=== PATIENT | female | born 1945 | race Caucasian/White ===

== ENCOUNTER 2017-09-10 11:28 | Day surgery (SDC) | payer MEDICARE ==
[~2017-09-10 11:28] MED LIST: ALBU8HFA PO; AMIT-189 PO; ASCO500C15 PO; ASPI-1009 PO; ATOR10TA87 PO; CARV6.253 PO; COU5T PO; ESCI10TA54 PO; FAMO20TA8 PO; GUAI118S13 PO; LEVO50TA8 PO; NAPR220T67 PO; NITR0.4T SL; OMEP-84 PO; VITA1CAP
[2017-09-10] MEDS ORDERED: LIDOcaine 2% 5ml jelly ONE (12:19)
[2017-09-10] MEDS ORDERED: BENA10TA2 PO (13:03)
== END 2017-09-10 12:55 | disposition home or self-care (01) ==
LOC: WOUND CARE 11:28
PROVIDERS: ATTEND Surgery
DX: T81.89XD Other complications of procedures, not elsewhere classified, subsequent encounter (principal); E11.622 Type 2 diabetes mellitus with other skin ulcer; L98.491 Non-pressure chronic ulcer of skin of other sites limited to breakdown of skin; E11.22 Type 2 diabetes mellitus with diabetic chronic kidney disease; I13.0 Hypertensive heart and chronic kidney disease with heart failure and stage 1 through stage 4 chronic kidney disease, or unspecified chronic kidney disease; I50.30 Unspecified diastolic (congestive) heart failure; N18.4 Chronic kidney disease, stage 4 (severe); J44.9 Chronic obstructive pulmonary disease, unspecified; K21.9 Gastro-esophageal reflux disease without esophagitis; E03.9 Hypothyroidism, unspecified; E66.01 Morbid (severe) obesity due to excess calories; G20 Parkinson's disease; J45.909 Unspecified asthma, uncomplicated; I48.91 Unspecified atrial fibrillation; M19.90 Unspecified osteoarthritis, unspecified site; I25.10 Atherosclerotic heart disease of native coronary artery without angina pectoris; Z90.710 Acquired absence of both cervix and uterus; Z90.49 Acquired absence of other specified parts of digestive tract; Z68.41 Body mass index [BMI] 40.0-44.9, adult; Z79.82 Long term (current) use of aspirin; Z79.84 Long term (current) use of oral hypoglycemic drugs; Z79.899 Other long term (current) drug therapy; Z72.89 Other problems related to lifestyle; Z86.03 Personal history of neoplasm of uncertain behavior; Z86.718 Personal history of other venous thrombosis and embolism; Z86.711 Personal history of pulmonary embolism; Z86.72 Personal history of thrombophlebitis; Z95.1 Presence of aortocoronary bypass graft; Y83.8 Other surgical procedures as the cause of abnormal reaction of the patient, or of later complication, without mention of misadventure at the time of the procedure
CPT/HCPCS: 97597; A6021; A6206

== ENCOUNTER 2017-09-17 11:17 | Outpatient (CLI) | payer MEDICARE ==
[~2017-09-17 11:17] MED LIST changes: +BENA10TA2 PO
== END 2017-09-17 12:24 | disposition home or self-care (01) ==
LOC: WOUND CARE 11:17
PROVIDERS: ATTEND Surgery
DX: E11.622 Type 2 diabetes mellitus with other skin ulcer (principal); L98.491 Non-pressure chronic ulcer of skin of other sites limited to breakdown of skin; I13.0 Hypertensive heart and chronic kidney disease with heart failure and stage 1 through stage 4 chronic kidney disease, or unspecified chronic kidney disease; E11.22 Type 2 diabetes mellitus with diabetic chronic kidney disease; N18.4 Chronic kidney disease, stage 4 (severe); I50.30 Unspecified diastolic (congestive) heart failure; J44.9 Chronic obstructive pulmonary disease, unspecified; I25.10 Atherosclerotic heart disease of native coronary artery without angina pectoris; K21.9 Gastro-esophageal reflux disease without esophagitis; E03.9 Hypothyroidism, unspecified; E66.01 Morbid (severe) obesity due to excess calories; G20 Parkinson's disease; J45.909 Unspecified asthma, uncomplicated; I48.91 Unspecified atrial fibrillation; M19.90 Unspecified osteoarthritis, unspecified site; Z90.710 Acquired absence of both cervix and uterus; Z90.49 Acquired absence of other specified parts of digestive tract; Z68.41 Body mass index [BMI] 40.0-44.9, adult; Z79.82 Long term (current) use of aspirin; Z79.84 Long term (current) use of oral hypoglycemic drugs; Z79.899 Other long term (current) drug therapy; Z72.89 Other problems related to lifestyle; Z86.03 Personal history of neoplasm of uncertain behavior; Z86.718 Personal history of other venous thrombosis and embolism; Z86.711 Personal history of pulmonary embolism; Z86.72 Personal history of thrombophlebitis; Z95.1 Presence of aortocoronary bypass graft; Z79.01 Long term (current) use of anticoagulants
CPT/HCPCS: 99211; A6206; A6222

== ENCOUNTER 2017-09-21 11:25 | Day surgery (SDC) | payer MEDICARE ==
[2017-09-21] MEDS ORDERED: LIDOcaine 2% 5ml jelly ONE (11:42)
[2017-09-21] MEDS ORDERED: nystatin/triamcinolone cream 15gm TP ONE (11:57)
== END 2017-09-21 12:12 | disposition home or self-care (01) ==
LOC: WOUND CARE 11:25
PROVIDERS: ATTEND Surgery
DX: T81.89XD Other complications of procedures, not elsewhere classified, subsequent encounter (principal); L98.491 Non-pressure chronic ulcer of skin of other sites limited to breakdown of skin; I25.10 Atherosclerotic heart disease of native coronary artery without angina pectoris; E11.22 Type 2 diabetes mellitus with diabetic chronic kidney disease; I13.0 Hypertensive heart and chronic kidney disease with heart failure and stage 1 through stage 4 chronic kidney disease, or unspecified chronic kidney disease; I50.30 Unspecified diastolic (congestive) heart failure; N18.4 Chronic kidney disease, stage 4 (severe); J44.9 Chronic obstructive pulmonary disease, unspecified; K21.9 Gastro-esophageal reflux disease without esophagitis; E03.9 Hypothyroidism, unspecified; E66.01 Morbid (severe) obesity due to excess calories; G20 Parkinson's disease; I48.91 Unspecified atrial fibrillation; M19.90 Unspecified osteoarthritis, unspecified site; Z90.710 Acquired absence of both cervix and uterus; Z90.49 Acquired absence of other specified parts of digestive tract; Z68.41 Body mass index [BMI] 40.0-44.9, adult; Z79.01 Long term (current) use of anticoagulants; Z79.82 Long term (current) use of aspirin; Z79.84 Long term (current) use of oral hypoglycemic drugs; Z79.899 Other long term (current) drug therapy; Z72.89 Other problems related to lifestyle; Z86.03 Personal history of neoplasm of uncertain behavior; Z86.718 Personal history of other venous thrombosis and embolism; Z86.711 Personal history of pulmonary embolism; Z95.1 Presence of aortocoronary bypass graft; Y83.8 Other surgical procedures as the cause of abnormal reaction of the patient, or of later complication, without mention of misadventure at the time of the procedure
CPT/HCPCS: 36416; 82948; 97597; A6021; A6206; A6213; A6222

== ENCOUNTER 2017-09-28 11:30 | Day surgery (SDC) | payer MEDICARE ==
[2017-09-28] MEDS ORDERED: LIDOcaine 2% 5ml jelly ONE (11:49)
[2017-09-28] MEDS ORDERED: nystatin/triamcinolone cream 15gm TP ONE (12:17)
== END 2017-09-28 13:05 | disposition home or self-care (01) ==
LOC: WOUND CARE 11:30
PROVIDERS: ATTEND Surgery
DX: T81.89XD Other complications of procedures, not elsewhere classified, subsequent encounter (principal); E11.622 Type 2 diabetes mellitus with other skin ulcer; L98.491 Non-pressure chronic ulcer of skin of other sites limited to breakdown of skin; E11.22 Type 2 diabetes mellitus with diabetic chronic kidney disease; I13.0 Hypertensive heart and chronic kidney disease with heart failure and stage 1 through stage 4 chronic kidney disease, or unspecified chronic kidney disease; I50.30 Unspecified diastolic (congestive) heart failure; N18.4 Chronic kidney disease, stage 4 (severe); K21.9 Gastro-esophageal reflux disease without esophagitis; I25.10 Atherosclerotic heart disease of native coronary artery without angina pectoris; J44.9 Chronic obstructive pulmonary disease, unspecified; E03.9 Hypothyroidism, unspecified; E66.01 Morbid (severe) obesity due to excess calories; G20 Parkinson's disease; I48.91 Unspecified atrial fibrillation; M19.90 Unspecified osteoarthritis, unspecified site; Z90.710 Acquired absence of both cervix and uterus; Z68.41 Body mass index [BMI] 40.0-44.9, adult; Z90.49 Acquired absence of other specified parts of digestive tract; Z79.01 Long term (current) use of anticoagulants; Z79.82 Long term (current) use of aspirin; Z79.84 Long term (current) use of oral hypoglycemic drugs; Z79.899 Other long term (current) drug therapy; Z72.89 Other problems related to lifestyle; Z86.03 Personal history of neoplasm of uncertain behavior; Z86.718 Personal history of other venous thrombosis and embolism; Z86.711 Personal history of pulmonary embolism; Z95.1 Presence of aortocoronary bypass graft; Y83.8 Other surgical procedures as the cause of abnormal reaction of the patient, or of later complication, without mention of misadventure at the time of the procedure
CPT/HCPCS: 17250; A6021; A6206; A6212; 97597

== ENCOUNTER 2017-10-05 11:23 | Day surgery (SDC) | payer MEDICARE ==
[2017-10-05] MEDS ORDERED: LIDOcaine 2% 5ml jelly ONE (11:31)
== END 2017-10-05 12:02 | disposition home or self-care (01) ==
LOC: WOUND CARE 11:23
PROVIDERS: ATTEND Surgery
DX: T81.89XD Other complications of procedures, not elsewhere classified, subsequent encounter (principal); L98.491 Non-pressure chronic ulcer of skin of other sites limited to breakdown of skin; I25.10 Atherosclerotic heart disease of native coronary artery without angina pectoris; E11.22 Type 2 diabetes mellitus with diabetic chronic kidney disease; I13.0 Hypertensive heart and chronic kidney disease with heart failure and stage 1 through stage 4 chronic kidney disease, or unspecified chronic kidney disease; I50.30 Unspecified diastolic (congestive) heart failure; N18.4 Chronic kidney disease, stage 4 (severe); E03.9 Hypothyroidism, unspecified; J44.9 Chronic obstructive pulmonary disease, unspecified; K21.9 Gastro-esophageal reflux disease without esophagitis; E66.01 Morbid (severe) obesity due to excess calories; G20 Parkinson's disease; I48.91 Unspecified atrial fibrillation; M19.90 Unspecified osteoarthritis, unspecified site; Z90.49 Acquired absence of other specified parts of digestive tract; Z90.710 Acquired absence of both cervix and uterus; Z68.41 Body mass index [BMI] 40.0-44.9, adult; Z79.01 Long term (current) use of anticoagulants; Z79.82 Long term (current) use of aspirin; Z79.84 Long term (current) use of oral hypoglycemic drugs; Z79.899 Other long term (current) drug therapy; Z72.89 Other problems related to lifestyle; Z86.03 Personal history of neoplasm of uncertain behavior; Z86.718 Personal history of other venous thrombosis and embolism; Z86.711 Personal history of pulmonary embolism; Z95.1 Presence of aortocoronary bypass graft; Z86.72 Personal history of thrombophlebitis; Y83.8 Other surgical procedures as the cause of abnormal reaction of the patient, or of later complication, without mention of misadventure at the time of the procedure
CPT/HCPCS: 97597; A6021; A6222

== ENCOUNTER 2017-10-12 11:20 | Outpatient (CLI) | payer MEDICARE ==
[~2017-10-12 11:20] MED LIST changes: +gentamicin 0.1% topical ointment 15gm TP ONE
== END 2017-10-12 12:21 | disposition home or self-care (01) ==
LOC: WOUND CARE 11:20 → EDSTATUS 11:30 → WOUND CARE 12:21
PROVIDERS: ATTEND Surgery
DX: T81.89XD Other complications of procedures, not elsewhere classified, subsequent encounter (principal); L98.491 Non-pressure chronic ulcer of skin of other sites limited to breakdown of skin; I25.10 Atherosclerotic heart disease of native coronary artery without angina pectoris; E11.22 Type 2 diabetes mellitus with diabetic chronic kidney disease; I13.0 Hypertensive heart and chronic kidney disease with heart failure and stage 1 through stage 4 chronic kidney disease, or unspecified chronic kidney disease; I50.30 Unspecified diastolic (congestive) heart failure; N18.4 Chronic kidney disease, stage 4 (severe); E03.9 Hypothyroidism, unspecified; J44.9 Chronic obstructive pulmonary disease, unspecified; K21.9 Gastro-esophageal reflux disease without esophagitis; E66.01 Morbid (severe) obesity due to excess calories; G20 Parkinson's disease; I48.91 Unspecified atrial fibrillation; M19.90 Unspecified osteoarthritis, unspecified site; Z90.49 Acquired absence of other specified parts of digestive tract; Z90.710 Acquired absence of both cervix and uterus; Z68.41 Body mass index [BMI] 40.0-44.9, adult; Z79.01 Long term (current) use of anticoagulants; Z79.82 Long term (current) use of aspirin; Z79.84 Long term (current) use of oral hypoglycemic drugs; Z79.899 Other long term (current) drug therapy; Z72.89 Other problems related to lifestyle; Z86.03 Personal history of neoplasm of uncertain behavior; Z86.718 Personal history of other venous thrombosis and embolism; Z86.711 Personal history of pulmonary embolism; Z95.1 Presence of aortocoronary bypass graft; Z86.72 Personal history of thrombophlebitis; Y83.8 Other surgical procedures as the cause of abnormal reaction of the patient, or of later complication, without mention of misadventure at the time of the procedure
CPT/HCPCS: 99215; A6021; A6213

== ENCOUNTER 2017-10-19 11:28 | Day surgery (SDC) | payer MEDICARE ==
[~2017-10-19 11:28] MED LIST changes: -gentamicin 0.1% topical ointment 15gm TP ONE
[2017-10-19] MEDS ORDERED: LIDOcaine 2% 5ml jelly ONE (11:50)
[2017-10-19] MEDS ORDERED: nystatin/triamcinolone cream 15gm TP ONE (12:19)
[2017-10-19] MEDS ORDERED: HYDR28CR14 TP (14:57)
== END 2017-10-19 12:28 | disposition home or self-care (01) ==
LOC: WOUND CARE 11:28
PROVIDERS: ATTEND Surgery
DX: T81.89XD Other complications of procedures, not elsewhere classified, subsequent encounter (principal); E11.622 Type 2 diabetes mellitus with other skin ulcer; L98.491 Non-pressure chronic ulcer of skin of other sites limited to breakdown of skin; I25.10 Atherosclerotic heart disease of native coronary artery without angina pectoris; E11.22 Type 2 diabetes mellitus with diabetic chronic kidney disease; I13.0 Hypertensive heart and chronic kidney disease with heart failure and stage 1 through stage 4 chronic kidney disease, or unspecified chronic kidney disease; I50.30 Unspecified diastolic (congestive) heart failure; N18.4 Chronic kidney disease, stage 4 (severe); J44.9 Chronic obstructive pulmonary disease, unspecified; K21.9 Gastro-esophageal reflux disease without esophagitis; E03.9 Hypothyroidism, unspecified; E66.01 Morbid (severe) obesity due to excess calories; G20 Parkinson's disease; I48.91 Unspecified atrial fibrillation; M19.90 Unspecified osteoarthritis, unspecified site; Z90.710 Acquired absence of both cervix and uterus; Z90.49 Acquired absence of other specified parts of digestive tract; Z68.41 Body mass index [BMI] 40.0-44.9, adult; Z79.01 Long term (current) use of anticoagulants; Z79.82 Long term (current) use of aspirin; Z79.899 Other long term (current) drug therapy; Z72.89 Other problems related to lifestyle; Z86.718 Personal history of other venous thrombosis and embolism; Z86.711 Personal history of pulmonary embolism; Z95.1 Presence of aortocoronary bypass graft; Y83.8 Other surgical procedures as the cause of abnormal reaction of the patient, or of later complication, without mention of misadventure at the time of the procedure
CPT/HCPCS: 17250; A6021; A6206; A6213

== ENCOUNTER 2017-10-26 11:33 | Day surgery (SDC) | payer MEDICARE ==
[~2017-10-26 11:33] MED LIST changes: +HYDR28CR14 TP
[2017-10-26] MEDS ORDERED: LIDOcaine 2% 5ml jelly ONE (11:40)
[2017-10-26] MEDS ORDERED: nystatin/triamcinolone cream 15gm TP ONE (14:10)
== END 2017-10-26 12:15 | disposition home or self-care (01) ==
LOC: WOUND CARE 11:33
PROVIDERS: ATTEND Surgery
DX: T81.89XD Other complications of procedures, not elsewhere classified, subsequent encounter (principal); E11.622 Type 2 diabetes mellitus with other skin ulcer; L98.491 Non-pressure chronic ulcer of skin of other sites limited to breakdown of skin; I25.10 Atherosclerotic heart disease of native coronary artery without angina pectoris; E11.22 Type 2 diabetes mellitus with diabetic chronic kidney disease; I13.0 Hypertensive heart and chronic kidney disease with heart failure and stage 1 through stage 4 chronic kidney disease, or unspecified chronic kidney disease; I50.30 Unspecified diastolic (congestive) heart failure; N18.4 Chronic kidney disease, stage 4 (severe); J44.9 Chronic obstructive pulmonary disease, unspecified; K21.9 Gastro-esophageal reflux disease without esophagitis; E03.9 Hypothyroidism, unspecified; E66.01 Morbid (severe) obesity due to excess calories; G20 Parkinson's disease; I48.91 Unspecified atrial fibrillation; M19.90 Unspecified osteoarthritis, unspecified site; Z90.710 Acquired absence of both cervix and uterus; Z90.49 Acquired absence of other specified parts of digestive tract; Z68.41 Body mass index [BMI] 40.0-44.9, adult; Z79.01 Long term (current) use of anticoagulants; Z79.82 Long term (current) use of aspirin; Z79.899 Other long term (current) drug therapy; Z72.89 Other problems related to lifestyle; Z86.718 Personal history of other venous thrombosis and embolism; Z86.711 Personal history of pulmonary embolism; Z95.1 Presence of aortocoronary bypass graft; Y83.8 Other surgical procedures as the cause of abnormal reaction of the patient, or of later complication, without mention of misadventure at the time of the procedure
CPT/HCPCS: 17250; A6021; A6213; A6223; 97597

== ENCOUNTER 2017-11-02 11:27 | Day surgery (SDC) | payer MEDICARE ==
[2017-11-02] MEDS ORDERED: LIDOcaine 2% 5ml jelly ONE (11:43)
== END 2017-11-02 12:09 | disposition home or self-care (01) ==
LOC: WOUND CARE 11:27
PROVIDERS: ATTEND Surgery
DX: T81.89XD Other complications of procedures, not elsewhere classified, subsequent encounter (principal); E11.622 Type 2 diabetes mellitus with other skin ulcer; L98.491 Non-pressure chronic ulcer of skin of other sites limited to breakdown of skin; I25.10 Atherosclerotic heart disease of native coronary artery without angina pectoris; E11.22 Type 2 diabetes mellitus with diabetic chronic kidney disease; I13.0 Hypertensive heart and chronic kidney disease with heart failure and stage 1 through stage 4 chronic kidney disease, or unspecified chronic kidney disease; I50.30 Unspecified diastolic (congestive) heart failure; N18.4 Chronic kidney disease, stage 4 (severe); J44.9 Chronic obstructive pulmonary disease, unspecified; K21.9 Gastro-esophageal reflux disease without esophagitis; E03.9 Hypothyroidism, unspecified; E66.01 Morbid (severe) obesity due to excess calories; G20 Parkinson's disease; I48.91 Unspecified atrial fibrillation; M19.90 Unspecified osteoarthritis, unspecified site; Z90.710 Acquired absence of both cervix and uterus; Z90.49 Acquired absence of other specified parts of digestive tract; Z68.41 Body mass index [BMI] 40.0-44.9, adult; Z79.01 Long term (current) use of anticoagulants; Z79.82 Long term (current) use of aspirin; Z79.899 Other long term (current) drug therapy; Z72.89 Other problems related to lifestyle; Z86.718 Personal history of other venous thrombosis and embolism; Z86.711 Personal history of pulmonary embolism; Z95.1 Presence of aortocoronary bypass graft; Y83.8 Other surgical procedures as the cause of abnormal reaction of the patient, or of later complication, without mention of misadventure at the time of the procedure
CPT/HCPCS: 11042; A6021; A6212

== ENCOUNTER 2017-11-09 11:30 | Day surgery (SDC) | payer MEDICARE ==
[2017-11-09] MEDS ORDERED: nystatin/triamcinolone cream 15gm TP ONE (12:10)
== END 2017-11-09 12:18 | disposition home or self-care (01) ==
LOC: WOUND CARE 11:30
PROVIDERS: ATTEND Surgery
DX: T81.89XD Other complications of procedures, not elsewhere classified, subsequent encounter (principal); E11.622 Type 2 diabetes mellitus with other skin ulcer; L98.491 Non-pressure chronic ulcer of skin of other sites limited to breakdown of skin; I25.10 Atherosclerotic heart disease of native coronary artery without angina pectoris; E11.22 Type 2 diabetes mellitus with diabetic chronic kidney disease; I13.0 Hypertensive heart and chronic kidney disease with heart failure and stage 1 through stage 4 chronic kidney disease, or unspecified chronic kidney disease; I50.30 Unspecified diastolic (congestive) heart failure; N18.4 Chronic kidney disease, stage 4 (severe); J44.9 Chronic obstructive pulmonary disease, unspecified; K21.9 Gastro-esophageal reflux disease without esophagitis; E03.9 Hypothyroidism, unspecified; E66.01 Morbid (severe) obesity due to excess calories; G20 Parkinson's disease; I48.91 Unspecified atrial fibrillation; M19.90 Unspecified osteoarthritis, unspecified site; Z90.710 Acquired absence of both cervix and uterus; Z90.49 Acquired absence of other specified parts of digestive tract; Z68.41 Body mass index [BMI] 40.0-44.9, adult; Z79.01 Long term (current) use of anticoagulants; Z79.82 Long term (current) use of aspirin; Z79.899 Other long term (current) drug therapy; Z72.89 Other problems related to lifestyle; Z86.718 Personal history of other venous thrombosis and embolism; Z86.711 Personal history of pulmonary embolism; Z95.1 Presence of aortocoronary bypass graft; Y83.8 Other surgical procedures as the cause of abnormal reaction of the patient, or of later complication, without mention of misadventure at the time of the procedure
CPT/HCPCS: 11042; A6021

== ENCOUNTER 2017-11-16 11:16 | Day surgery (SDC) | payer MEDICARE ==
[2017-11-16] MEDS ORDERED: LIDOcaine 2% 5ml jelly ONE (11:59)
[2017-11-16] MEDS ORDERED: mupirocin 2% ointment 22GM ONE (12:29)
== END 2017-11-16 12:35 | disposition home or self-care (01) ==
LOC: WOUND CARE 11:16
PROVIDERS: ATTEND Surgery
DX: T81.89XD Other complications of procedures, not elsewhere classified, subsequent encounter (principal); E11.622 Type 2 diabetes mellitus with other skin ulcer; L98.491 Non-pressure chronic ulcer of skin of other sites limited to breakdown of skin; I25.10 Atherosclerotic heart disease of native coronary artery without angina pectoris; E11.22 Type 2 diabetes mellitus with diabetic chronic kidney disease; I13.0 Hypertensive heart and chronic kidney disease with heart failure and stage 1 through stage 4 chronic kidney disease, or unspecified chronic kidney disease; I50.30 Unspecified diastolic (congestive) heart failure; N18.4 Chronic kidney disease, stage 4 (severe); J44.9 Chronic obstructive pulmonary disease, unspecified; K21.9 Gastro-esophageal reflux disease without esophagitis; E03.9 Hypothyroidism, unspecified; E66.01 Morbid (severe) obesity due to excess calories; G20 Parkinson's disease; I48.91 Unspecified atrial fibrillation; M19.90 Unspecified osteoarthritis, unspecified site; Z90.710 Acquired absence of both cervix and uterus; Z90.49 Acquired absence of other specified parts of digestive tract; Z68.41 Body mass index [BMI] 40.0-44.9, adult; Z79.01 Long term (current) use of anticoagulants; Z79.82 Long term (current) use of aspirin; Z79.899 Other long term (current) drug therapy; Z72.89 Other problems related to lifestyle; Z86.718 Personal history of other venous thrombosis and embolism; Z86.711 Personal history of pulmonary embolism; Z95.1 Presence of aortocoronary bypass graft; Y83.8 Other surgical procedures as the cause of abnormal reaction of the patient, or of later complication, without mention of misadventure at the time of the procedure
CPT/HCPCS: 97597; A6209

== ENCOUNTER 2017-11-23 11:30 | Day surgery (SDC) | payer MEDICARE ==
[2017-11-23] MEDS ORDERED: LIDOcaine 2% 5ml jelly ONE (12:06)
[2017-11-23] MEDS ORDERED: MONT4GRA PO (14:33)
[2017-11-23] MEDS ORDERED: GABA-530 PO (14:33)
== END 2017-11-23 12:26 | disposition home or self-care (01) ==
LOC: WOUND CARE 11:30
PROVIDERS: ATTEND Surgery
DX: T81.89XD Other complications of procedures, not elsewhere classified, subsequent encounter (principal); E11.622 Type 2 diabetes mellitus with other skin ulcer; L98.491 Non-pressure chronic ulcer of skin of other sites limited to breakdown of skin; I25.10 Atherosclerotic heart disease of native coronary artery without angina pectoris; E11.22 Type 2 diabetes mellitus with diabetic chronic kidney disease; I13.0 Hypertensive heart and chronic kidney disease with heart failure and stage 1 through stage 4 chronic kidney disease, or unspecified chronic kidney disease; I50.30 Unspecified diastolic (congestive) heart failure; N18.4 Chronic kidney disease, stage 4 (severe); J44.9 Chronic obstructive pulmonary disease, unspecified; K21.9 Gastro-esophageal reflux disease without esophagitis; E03.9 Hypothyroidism, unspecified; E66.01 Morbid (severe) obesity due to excess calories; G20 Parkinson's disease; I48.91 Unspecified atrial fibrillation; M19.90 Unspecified osteoarthritis, unspecified site; Z90.710 Acquired absence of both cervix and uterus; Z90.49 Acquired absence of other specified parts of digestive tract; Z68.41 Body mass index [BMI] 40.0-44.9, adult; Z79.01 Long term (current) use of anticoagulants; Z79.82 Long term (current) use of aspirin; Z79.899 Other long term (current) drug therapy; Z72.89 Other problems related to lifestyle; Z86.718 Personal history of other venous thrombosis and embolism; Z86.711 Personal history of pulmonary embolism; Z95.1 Presence of aortocoronary bypass graft; Y83.8 Other surgical procedures as the cause of abnormal reaction of the patient, or of later complication, without mention of misadventure at the time of the procedure
CPT/HCPCS: 97597; A6021; A6212

== ENCOUNTER 2017-12-07 11:35 | Day surgery (SDC) | payer MEDICARE ==
[~2017-12-07 11:35] MED LIST changes: -AMIT-189 PO; +GABA-530 PO; +MONT4GRA PO
[2017-12-07] MEDS ORDERED: LIDOcaine 2% 5ml jelly ONE (12:06)
== END 2017-12-07 12:37 | disposition home or self-care (01) ==
LOC: WOUND CARE 11:35
PROVIDERS: ATTEND Surgery
DX: T81.89XD Other complications of procedures, not elsewhere classified, subsequent encounter (principal); E11.622 Type 2 diabetes mellitus with other skin ulcer; L98.491 Non-pressure chronic ulcer of skin of other sites limited to breakdown of skin; I25.10 Atherosclerotic heart disease of native coronary artery without angina pectoris; E11.22 Type 2 diabetes mellitus with diabetic chronic kidney disease; I13.0 Hypertensive heart and chronic kidney disease with heart failure and stage 1 through stage 4 chronic kidney disease, or unspecified chronic kidney disease; I50.30 Unspecified diastolic (congestive) heart failure; N18.4 Chronic kidney disease, stage 4 (severe); J44.9 Chronic obstructive pulmonary disease, unspecified; K21.9 Gastro-esophageal reflux disease without esophagitis; E03.9 Hypothyroidism, unspecified; E66.01 Morbid (severe) obesity due to excess calories; G20 Parkinson's disease; I48.91 Unspecified atrial fibrillation; M19.90 Unspecified osteoarthritis, unspecified site; Z90.710 Acquired absence of both cervix and uterus; Z90.49 Acquired absence of other specified parts of digestive tract; Z68.41 Body mass index [BMI] 40.0-44.9, adult; Z79.01 Long term (current) use of anticoagulants; Z79.82 Long term (current) use of aspirin; Z79.899 Other long term (current) drug therapy; Z72.89 Other problems related to lifestyle; Z86.718 Personal history of other venous thrombosis and embolism; Z86.711 Personal history of pulmonary embolism; Z95.1 Presence of aortocoronary bypass graft; Y83.8 Other surgical procedures as the cause of abnormal reaction of the patient, or of later complication, without mention of misadventure at the time of the procedure
CPT/HCPCS: 97597; A6021; A6212; A6253

== ENCOUNTER 2017-12-14 11:26 | Day surgery (SDC) | payer MEDICARE ==
[2017-12-14] MEDS ORDERED: LIDOcaine 2% 5ml jelly ONE (11:59)
== END 2017-12-14 12:18 | disposition home or self-care (01) ==
LOC: WOUND CARE 11:26
PROVIDERS: ATTEND Surgery
DX: T81.89XD Other complications of procedures, not elsewhere classified, subsequent encounter (principal); E11.622 Type 2 diabetes mellitus with other skin ulcer; L98.491 Non-pressure chronic ulcer of skin of other sites limited to breakdown of skin; I25.10 Atherosclerotic heart disease of native coronary artery without angina pectoris; E11.22 Type 2 diabetes mellitus with diabetic chronic kidney disease; I13.0 Hypertensive heart and chronic kidney disease with heart failure and stage 1 through stage 4 chronic kidney disease, or unspecified chronic kidney disease; I50.30 Unspecified diastolic (congestive) heart failure; N18.4 Chronic kidney disease, stage 4 (severe); J44.9 Chronic obstructive pulmonary disease, unspecified; K21.9 Gastro-esophageal reflux disease without esophagitis; E03.9 Hypothyroidism, unspecified; E66.01 Morbid (severe) obesity due to excess calories; G20 Parkinson's disease; I48.91 Unspecified atrial fibrillation; M19.90 Unspecified osteoarthritis, unspecified site; Z90.710 Acquired absence of both cervix and uterus; Z90.49 Acquired absence of other specified parts of digestive tract; Z68.41 Body mass index [BMI] 40.0-44.9, adult; Z79.01 Long term (current) use of anticoagulants; Z79.82 Long term (current) use of aspirin; Z79.899 Other long term (current) drug therapy; Z86.718 Personal history of other venous thrombosis and embolism; Z86.711 Personal history of pulmonary embolism; Z95.1 Presence of aortocoronary bypass graft; Y83.8 Other surgical procedures as the cause of abnormal reaction of the patient, or of later complication, without mention of misadventure at the time of the procedure
CPT/HCPCS: 97597; A6021

== ENCOUNTER 2017-12-28 11:17 | Day surgery (SDC) | payer MEDICARE ==
[2017-12-28] MEDS ORDERED: LIDOcaine 2% 5ml jelly ONE (11:38)
== END 2017-12-28 12:01 | disposition home or self-care (01) ==
LOC: WOUND CARE 11:17
PROVIDERS: ATTEND Surgery
DX: T81.89XD Other complications of procedures, not elsewhere classified, subsequent encounter (principal); E11.622 Type 2 diabetes mellitus with other skin ulcer; L98.491 Non-pressure chronic ulcer of skin of other sites limited to breakdown of skin; I25.10 Atherosclerotic heart disease of native coronary artery without angina pectoris; E11.22 Type 2 diabetes mellitus with diabetic chronic kidney disease; I13.0 Hypertensive heart and chronic kidney disease with heart failure and stage 1 through stage 4 chronic kidney disease, or unspecified chronic kidney disease; I50.30 Unspecified diastolic (congestive) heart failure; N18.4 Chronic kidney disease, stage 4 (severe); J44.9 Chronic obstructive pulmonary disease, unspecified; K21.9 Gastro-esophageal reflux disease without esophagitis; E03.9 Hypothyroidism, unspecified; E66.01 Morbid (severe) obesity due to excess calories; G20 Parkinson's disease; I48.91 Unspecified atrial fibrillation; M19.90 Unspecified osteoarthritis, unspecified site; Z90.710 Acquired absence of both cervix and uterus; Z90.49 Acquired absence of other specified parts of digestive tract; Z68.41 Body mass index [BMI] 40.0-44.9, adult; Z79.01 Long term (current) use of anticoagulants; Z79.82 Long term (current) use of aspirin; Z79.899 Other long term (current) drug therapy; Z86.718 Personal history of other venous thrombosis and embolism; Z86.711 Personal history of pulmonary embolism; Z95.1 Presence of aortocoronary bypass graft; Y83.8 Other surgical procedures as the cause of abnormal reaction of the patient, or of later complication, without mention of misadventure at the time of the procedure
CPT/HCPCS: 17250; A6021; A6213; 97597

== ENCOUNTER 2018-01-04 11:30 | Day surgery (SDC) | payer MEDICARE ==
[2018-01-04] MEDS ORDERED: LIDOcaine 2% 5ml jelly ONE (11:39)
[2018-01-04] MEDS ORDERED: MYCOL15CR TOP (13:45)
== END 2018-01-04 12:03 | disposition home or self-care (01) ==
LOC: WOUND CARE 11:30
PROVIDERS: ATTEND Surgery
DX: T81.89XD Other complications of procedures, not elsewhere classified, subsequent encounter (principal); E11.622 Type 2 diabetes mellitus with other skin ulcer; L98.492 Non-pressure chronic ulcer of skin of other sites with fat layer exposed; I25.10 Atherosclerotic heart disease of native coronary artery without angina pectoris; E11.22 Type 2 diabetes mellitus with diabetic chronic kidney disease; I13.0 Hypertensive heart and chronic kidney disease with heart failure and stage 1 through stage 4 chronic kidney disease, or unspecified chronic kidney disease; I50.30 Unspecified diastolic (congestive) heart failure; N18.4 Chronic kidney disease, stage 4 (severe); J44.9 Chronic obstructive pulmonary disease, unspecified; K21.9 Gastro-esophageal reflux disease without esophagitis; E03.9 Hypothyroidism, unspecified; E66.01 Morbid (severe) obesity due to excess calories; G20 Parkinson's disease; I48.91 Unspecified atrial fibrillation; M19.90 Unspecified osteoarthritis, unspecified site; Z90.710 Acquired absence of both cervix and uterus; Z90.49 Acquired absence of other specified parts of digestive tract; Z68.41 Body mass index [BMI] 40.0-44.9, adult; Z79.01 Long term (current) use of anticoagulants; Z79.82 Long term (current) use of aspirin; Z79.899 Other long term (current) drug therapy; Z86.718 Personal history of other venous thrombosis and embolism; Z86.711 Personal history of pulmonary embolism; Z95.1 Presence of aortocoronary bypass graft; Y83.8 Other surgical procedures as the cause of abnormal reaction of the patient, or of later complication, without mention of misadventure at the time of the procedure
CPT/HCPCS: 17250; A6021; A6212; A6213; 97597

== ENCOUNTER 2018-01-11 11:25 | Day surgery (SDC) | payer MEDICARE ==
[~2018-01-11 11:25] MED LIST changes: +MYCOL15CR TOP
[2018-01-11] MEDS ORDERED: LIDOcaine 2% 5ml jelly ONE (12:07)
== END 2018-01-11 12:23 | disposition home or self-care (01) ==
LOC: WOUND CARE 11:25
PROVIDERS: ATTEND Surgery
DX: T81.89XD Other complications of procedures, not elsewhere classified, subsequent encounter (principal); E11.622 Type 2 diabetes mellitus with other skin ulcer; L98.492 Non-pressure chronic ulcer of skin of other sites with fat layer exposed; I25.10 Atherosclerotic heart disease of native coronary artery without angina pectoris; E11.22 Type 2 diabetes mellitus with diabetic chronic kidney disease; I13.0 Hypertensive heart and chronic kidney disease with heart failure and stage 1 through stage 4 chronic kidney disease, or unspecified chronic kidney disease; I50.30 Unspecified diastolic (congestive) heart failure; N18.4 Chronic kidney disease, stage 4 (severe); J44.9 Chronic obstructive pulmonary disease, unspecified; K21.9 Gastro-esophageal reflux disease without esophagitis; E03.9 Hypothyroidism, unspecified; E66.01 Morbid (severe) obesity due to excess calories; G20 Parkinson's disease; I48.91 Unspecified atrial fibrillation; M19.90 Unspecified osteoarthritis, unspecified site; Z90.710 Acquired absence of both cervix and uterus; Z90.49 Acquired absence of other specified parts of digestive tract; Z68.41 Body mass index [BMI] 40.0-44.9, adult; Z79.01 Long term (current) use of anticoagulants; Z79.82 Long term (current) use of aspirin; Z79.899 Other long term (current) drug therapy; Z86.718 Personal history of other venous thrombosis and embolism; Z86.711 Personal history of pulmonary embolism; Z95.1 Presence of aortocoronary bypass graft; Y83.8 Other surgical procedures as the cause of abnormal reaction of the patient, or of later complication, without mention of misadventure at the time of the procedure
CPT/HCPCS: 17250; A6021; A6212

== ENCOUNTER 2018-01-18 11:20 | Day surgery (SDC) | payer MEDICARE ==
[2018-01-18] MEDS ORDERED: LIDOcaine 2% 5ml jelly ONE (11:44)
== END 2018-01-18 11:44 | disposition home or self-care (01) ==
LOC: WOUND CARE 11:20
PROVIDERS: ATTEND Surgery
DX: T81.89XD Other complications of procedures, not elsewhere classified, subsequent encounter (principal); E11.622 Type 2 diabetes mellitus with other skin ulcer; L98.492 Non-pressure chronic ulcer of skin of other sites with fat layer exposed; I25.10 Atherosclerotic heart disease of native coronary artery without angina pectoris; E11.22 Type 2 diabetes mellitus with diabetic chronic kidney disease; I13.0 Hypertensive heart and chronic kidney disease with heart failure and stage 1 through stage 4 chronic kidney disease, or unspecified chronic kidney disease; I50.30 Unspecified diastolic (congestive) heart failure; N18.4 Chronic kidney disease, stage 4 (severe); J44.9 Chronic obstructive pulmonary disease, unspecified; K21.9 Gastro-esophageal reflux disease without esophagitis; E03.9 Hypothyroidism, unspecified; E66.01 Morbid (severe) obesity due to excess calories; G20 Parkinson's disease; I48.91 Unspecified atrial fibrillation; M19.90 Unspecified osteoarthritis, unspecified site; Z90.710 Acquired absence of both cervix and uterus; Z90.49 Acquired absence of other specified parts of digestive tract; Z68.41 Body mass index [BMI] 40.0-44.9, adult; Z79.01 Long term (current) use of anticoagulants; Z79.82 Long term (current) use of aspirin; Z79.899 Other long term (current) drug therapy; Z86.718 Personal history of other venous thrombosis and embolism; Z86.711 Personal history of pulmonary embolism; Z95.1 Presence of aortocoronary bypass graft; Y83.8 Other surgical procedures as the cause of abnormal reaction of the patient, or of later complication, without mention of misadventure at the time of the procedure
CPT/HCPCS: 97597; A4421; A6021; A4414

== ENCOUNTER 2018-02-01 11:24 | Day surgery (SDC) | payer MEDICARE ==
[2018-02-01] MEDS ORDERED: LIDOcaine 2% 5ml jelly ONE (11:54)
== END 2018-02-01 12:06 | disposition home or self-care (01) ==
LOC: WOUND CARE 11:24
PROVIDERS: ATTEND Surgery
DX: T81.89XD Other complications of procedures, not elsewhere classified, subsequent encounter (principal); E11.622 Type 2 diabetes mellitus with other skin ulcer; L98.492 Non-pressure chronic ulcer of skin of other sites with fat layer exposed; I25.10 Atherosclerotic heart disease of native coronary artery without angina pectoris; E11.22 Type 2 diabetes mellitus with diabetic chronic kidney disease; I13.0 Hypertensive heart and chronic kidney disease with heart failure and stage 1 through stage 4 chronic kidney disease, or unspecified chronic kidney disease; N18.4 Chronic kidney disease, stage 4 (severe); J44.9 Chronic obstructive pulmonary disease, unspecified; K21.9 Gastro-esophageal reflux disease without esophagitis; E03.9 Hypothyroidism, unspecified; E66.01 Morbid (severe) obesity due to excess calories; G20 Parkinson's disease; I48.91 Unspecified atrial fibrillation; M19.90 Unspecified osteoarthritis, unspecified site; Z90.710 Acquired absence of both cervix and uterus; Z90.49 Acquired absence of other specified parts of digestive tract; Z68.41 Body mass index [BMI] 40.0-44.9, adult; Z79.01 Long term (current) use of anticoagulants; Z79.82 Long term (current) use of aspirin; Z79.899 Other long term (current) drug therapy; Z86.718 Personal history of other venous thrombosis and embolism; Z86.711 Personal history of pulmonary embolism; Z95.1 Presence of aortocoronary bypass graft; Y83.8 Other surgical procedures as the cause of abnormal reaction of the patient, or of later complication, without mention of misadventure at the time of the procedure
CPT/HCPCS: 17250; A6021; A6212

== ENCOUNTER 2018-02-15 11:45 | Day surgery (SDC) | payer MEDICARE ==
[2018-02-15] MEDS ORDERED: LIDOcaine 2% 5ml jelly ONE (12:12)
== END 2018-02-15 12:23 | disposition home or self-care (01) ==
LOC: WOUND CARE 11:45
PROVIDERS: ATTEND Surgery
DX: T81.89XD Other complications of procedures, not elsewhere classified, subsequent encounter (principal); E11.622 Type 2 diabetes mellitus with other skin ulcer; L98.492 Non-pressure chronic ulcer of skin of other sites with fat layer exposed; I25.10 Atherosclerotic heart disease of native coronary artery without angina pectoris; E11.22 Type 2 diabetes mellitus with diabetic chronic kidney disease; I13.0 Hypertensive heart and chronic kidney disease with heart failure and stage 1 through stage 4 chronic kidney disease, or unspecified chronic kidney disease; N18.4 Chronic kidney disease, stage 4 (severe); J44.9 Chronic obstructive pulmonary disease, unspecified; K21.9 Gastro-esophageal reflux disease without esophagitis; E03.9 Hypothyroidism, unspecified; E66.01 Morbid (severe) obesity due to excess calories; G20 Parkinson's disease; I48.91 Unspecified atrial fibrillation; M19.90 Unspecified osteoarthritis, unspecified site; Z90.710 Acquired absence of both cervix and uterus; Z90.49 Acquired absence of other specified parts of digestive tract; Z68.41 Body mass index [BMI] 40.0-44.9, adult; Z79.01 Long term (current) use of anticoagulants; Z79.82 Long term (current) use of aspirin; Z79.899 Other long term (current) drug therapy; Z86.718 Personal history of other venous thrombosis and embolism; Z86.711 Personal history of pulmonary embolism; Z95.1 Presence of aortocoronary bypass graft; Y83.8 Other surgical procedures as the cause of abnormal reaction of the patient, or of later complication, without mention of misadventure at the time of the procedure
CPT/HCPCS: 17250; A6206; A6212

== ENCOUNTER 2018-02-22 11:27 | Day surgery (SDC) | payer MEDICARE ==
[2018-02-22] MEDS ORDERED: LIDOcaine 2% 5ml jelly ONE (11:39)
== END 2018-02-22 12:04 | disposition home or self-care (01) ==
LOC: WOUND CARE 11:27
PROVIDERS: ATTEND Surgery
DX: T81.89XD Other complications of procedures, not elsewhere classified, subsequent encounter (principal); E11.622 Type 2 diabetes mellitus with other skin ulcer; L98.492 Non-pressure chronic ulcer of skin of other sites with fat layer exposed; I25.10 Atherosclerotic heart disease of native coronary artery without angina pectoris; E11.22 Type 2 diabetes mellitus with diabetic chronic kidney disease; I13.0 Hypertensive heart and chronic kidney disease with heart failure and stage 1 through stage 4 chronic kidney disease, or unspecified chronic kidney disease; N18.4 Chronic kidney disease, stage 4 (severe); J44.9 Chronic obstructive pulmonary disease, unspecified; K21.9 Gastro-esophageal reflux disease without esophagitis; E03.9 Hypothyroidism, unspecified; E66.01 Morbid (severe) obesity due to excess calories; G20 Parkinson's disease; I48.91 Unspecified atrial fibrillation; M19.90 Unspecified osteoarthritis, unspecified site; Z90.710 Acquired absence of both cervix and uterus; Z90.49 Acquired absence of other specified parts of digestive tract; Z68.41 Body mass index [BMI] 40.0-44.9, adult; Z79.01 Long term (current) use of anticoagulants; Z79.82 Long term (current) use of aspirin; Z79.899 Other long term (current) drug therapy; Z86.718 Personal history of other venous thrombosis and embolism; Z86.711 Personal history of pulmonary embolism; Z95.1 Presence of aortocoronary bypass graft; Y83.8 Other surgical procedures as the cause of abnormal reaction of the patient, or of later complication, without mention of misadventure at the time of the procedure
CPT/HCPCS: 97597; A6021; A6212

== ENCOUNTER 2018-03-08 11:30 | Day surgery (SDC) | payer MEDICARE ==
[2018-03-08] MEDS ORDERED: LIDOcaine 2% 5ml jelly ONE (11:50)
== END 2018-03-08 12:11 | disposition home or self-care (01) ==
LOC: WOUND CARE 11:30
PROVIDERS: ATTEND Surgery
DX: T81.89XD Other complications of procedures, not elsewhere classified, subsequent encounter (principal); E11.622 Type 2 diabetes mellitus with other skin ulcer; L98.492 Non-pressure chronic ulcer of skin of other sites with fat layer exposed; I25.10 Atherosclerotic heart disease of native coronary artery without angina pectoris; E11.22 Type 2 diabetes mellitus with diabetic chronic kidney disease; I13.0 Hypertensive heart and chronic kidney disease with heart failure and stage 1 through stage 4 chronic kidney disease, or unspecified chronic kidney disease; N18.4 Chronic kidney disease, stage 4 (severe); J44.9 Chronic obstructive pulmonary disease, unspecified; K21.9 Gastro-esophageal reflux disease without esophagitis; E03.9 Hypothyroidism, unspecified; E66.01 Morbid (severe) obesity due to excess calories; G20 Parkinson's disease; I48.91 Unspecified atrial fibrillation; M19.90 Unspecified osteoarthritis, unspecified site; Z90.710 Acquired absence of both cervix and uterus; Z90.49 Acquired absence of other specified parts of digestive tract; Z68.41 Body mass index [BMI] 40.0-44.9, adult; Z79.01 Long term (current) use of anticoagulants; Z79.82 Long term (current) use of aspirin; Z79.899 Other long term (current) drug therapy; Z86.718 Personal history of other venous thrombosis and embolism; Z86.711 Personal history of pulmonary embolism; Z95.1 Presence of aortocoronary bypass graft; Y83.8 Other surgical procedures as the cause of abnormal reaction of the patient, or of later complication, without mention of misadventure at the time of the procedure
CPT/HCPCS: 97597; A6021; A6206; A6212

== ENCOUNTER 2018-12-15 09:59 | Day surgery (SDC) | payer MEDICARE ==
[2018-12-14 14:09] LABS: BASOPHILS % (AUTO) 0.5 % (0-1); EOSINOPHILS # (AUTO) 0.1 X10'3 (0-0.9); HEMATOCRIT 37.2 % (35.0-45.0); HEMOGLOBIN 12.3 g/dl (12.0-16.0); LYMPHOCYTES % (AUTO) 13.1 % (21-51); MEAN CORPUSCULAR HEMOGLOBIN 29.5 PG (27.0-31.0); MEAN CORPUSCULAR HGB CONC 33.1 g/dL (33.0-36.5); MEAN CORPUSCULAR VOLUME 89.1 FL (78-98); MEAN PLATELET VOLUME 10.1 FL (7.4-10.4); MONOCYTES # (AUTO) 0.3 X10'3 (0-0.9); MONOCYTES % (AUTO) 3.8 % (2-12); NEUTROPHILS # (AUTO) 5.9 X10'3 (1.8-7.7); NEUTROPHILS % (AUTO) 81.6 % (42-75); PLATELET COUNT 148 X10'3 (140-440); RED BLOOD COUNT 4.17 X10'6 (4.20-5.60); RED CELL DISTRIBUTION WIDTH 19.2 % (11.5-14.5); WHITE BLOOD COUNT 7.3 X10'3 (4.5-11.0)
[2018-12-14 14:17] LABS: ANION GAP 5 (8-16); BLOOD UREA NITROGEN 21 MG/DL (7-18); BUN/CREATININE RATIO 17.6 (6.6-38.0); CHLORIDE 108 MMOL/L (99-107); CREATININE 1.19 MG/DL (0.40-0.90); GLUCOSE 115 MG/DL (70-104); MAGNESIUM 1.6 MG/DL (1.5-2.4); POTASSIUM 4.1 MMOL/L (3.5-5.1); SODIUM 142 MMOL/L (135-145); eGFR 44 ML/MIN
[2018-12-14 14:22] LABS: PARTIAL THROMBOPLASTIN TIME 27 SECONDS (22-32); PROTHROMBIN TIME 10.4 SECONDS (9.0-12.0)
[2018-12-14 14:25] LABS: CALCIUM 9.3 MG/DL (8.5-10.1)
[2018-12-15] VITALS (11 sets, daily range): BP systolic 123–150; BP diastolic 53–92
[~2018-12-15] VITALS: Ht 160 cm; Wt 101.4 kg
[~2018-12-15 09:59] MED LIST changes: -BENA10TA2 PO; +BENA10TA74 PO
[2018-12-15] MEDS ORDERED: normal saline 1,000 ML IV SCH (11:00)
[2018-12-15] MEDS ORDERED: diphenhydrAMINE 25mg capsule PO PRN (11:00)
[2018-12-15] MEDS ORDERED: LORazepam 0.5 MG tablet PO PRN (11:00)
[2018-12-15] MEDS ORDERED: acetylcysteine 200 MG/ml 4ml vial PO PRN (11:00)
[2018-12-15] MEDS ORDERED: LORA10TA61 PO (11:35)
[2018-12-15] MEDS ORDERED: GABA-532 PO (11:35)
[2018-12-15] MEDS ORDERED: LIDOcaine/PRILOcaine 5gm cream TP ONE (11:55)
--- NOTE | 2018-12-15 12:30 | NUR ---
VERBAL ORDER. EMLA AND GEN TEST DONE ON LEFT WRIST/HAND. POSITIVE
[2018-12-15] MEDS ORDERED: midazolam 2 mg/2 ml injection ONE (14:36)
[2018-12-15] MEDS ORDERED: nitroGLYCERIN-Tridil 50MG/D5W 250 ML IV ONE (14:36)
[2018-12-15] MEDS ORDERED: iohexol 350 MG/ML 50ML vial IV ONE (14:37)
[2018-12-15] MEDS ORDERED: heparin 1,000unit/ml 10ml vial 10 ML ONE (14:37)
[2018-12-15] MEDS ORDERED: LIDOcaine 1% (10mg/ml)w/preservative injection 20ml MDV ONE (14:37)
[2018-12-15] MEDS ORDERED: fentaNYL/PF 50MCG/1 ML 2ML syringe ONE (14:37)
[2018-12-15] MEDS ORDERED: iohexol 350MG/ML 100ml bottle IV ONE ×2 (14:37→15:19)
[2018-12-15] MEDS ORDERED: verapamil 2.5 mg/ml inj IV ONE (14:38)
--- NOTE | 2018-12-15 14:43 | NUR ---
CALL MADE TO CHILD PSYCHOLOGIST TO INFORM THAT SON WAS EXCORTED TO WAITING ROOM OF CHILD PSYCHOLOGIST
[2018-12-15] MEDS ORDERED: heparin 25,000 UNIT/250ml bag 250 ML IV ONE (15:31)
[2018-12-15] MEDS ORDERED: normal saline 1000ml 1,000 ML IV ONE (17:00)
[2018-12-16 06:36] LABS: ISTAT HGB ART 11.2 g/dl (12.0-16.0); ISTAT Hct ART 33 %PCV (35-48); ISTAT O2 SATURATION ARTERIAL 97 % (95-98); ISTAT SOURCE ART
[2018-12-16 06:36] LABS: ISTAT Hct MIX 33 %PCV (35-48); ISTAT O2 SATURATION MIX VENOUS 71 % (60-80); ISTAT SOURCE MIX
== END 2018-12-15 20:10 | disposition home or self-care (01) ==
LOC: SSTAY O 09:59
PROVIDERS: ATTEND Internal Medicine Cardiovascular Disease
DX: I25.10 Atherosclerotic heart disease of native coronary artery without angina pectoris (principal); E11.9 Type 2 diabetes mellitus without complications; I10 Essential (primary) hypertension; E78.5 Hyperlipidemia, unspecified; Z95.5 Presence of coronary angioplasty implant and graft
CPT/HCPCS: 36415; 80048; 82803; 83735; 85014; 85025; 85610; 85730; 93005; 93459; 99152; 99153; A6257; J1644; J2001; J2250; J3010; J7030; Q0163; Q9967; A4620; C1769; J3490

== ENCOUNTER 2021-05-30 11:07 | Emergency (ER) | payer MEDICARE ==
[~2021-05-30] VITALS: Ht 160 cm; Wt 104.5 kg
[~2021-05-30 11:07] MED LIST changes: -ASCO500C15 PO; +ASCO500C18 PO; -BENA10TA74 PO; -COU5T PO; +ESCI-8 PO; -ESCI10TA54 PO; -FAMO20TA8 PO; -GABA-530 PO; +GABA-532 PO; -HYDR28CR14 TP; +LORA10TA61 PO; -MONT4GRA PO; -MYCOL15CR TOP; -NAPR220T67 PO; +WARF-113 PO
[2021-05-30] MEDS ORDERED: HYDROcodone/acetaminophen 5mg/325mg tablet PO ONE (11:20)
[2021-05-30 12:07] VITALS: BP 164/64
[2021-05-30] MEDS ORDERED: HYDR-3965 PO (12:51)
== END 2021-05-30 13:51 | disposition home or self-care (01) ==
LOC: ER 11:08
DX: S90.32XA Contusion of left foot, initial encounter (principal); S93.402A Sprain of unspecified ligament of left ankle, initial encounter; M25.462 Effusion, left knee; I25.10 Atherosclerotic heart disease of native coronary artery without angina pectoris; J45.909 Unspecified asthma, uncomplicated; E11.9 Type 2 diabetes mellitus without complications; Z90.49 Acquired absence of other specified parts of digestive tract; Z98.890 Other specified postprocedural states; Z72.89 Other problems related to lifestyle; Z60.2 Problems related to living alone; Z88.8 Allergy status to other drugs, medicaments and biological substances; Z79.82 Long term (current) use of aspirin; Z79.899 Other long term (current) drug therapy; W19.XXXA Unspecified fall, initial encounter; Y93.89 Activity, other specified; Y92.89 Other specified places as the place of occurrence of the external cause; Y99.8 Other external cause status
CPT/HCPCS: 73564; 73610; 73630; 99284

== ENCOUNTER 2023-05-03 11:21 | Inpatient (IN) | payer MEDICARE ==
[~2023-05-03] VITALS: Ht 160 cm; Wt 100.0 kg
[~2023-05-03 11:21] MED LIST changes: -VITA1CAP; +VITA1CAP PO
--- NOTE | 2023-05-03 12:55 | NUR ---
Nisreen Brand RN from stroke team at bedside at 1255.
[2023-05-03 13:25] LABS: HEMATOCRIT 22.4 % (35.0-45.0); MEAN CORPUSCULAR HEMOGLOBIN 27.5 PG (27.0-31.0); MEAN CORPUSCULAR HGB CONC 30.6 g/dL (33.0-36.5); MEAN CORPUSCULAR VOLUME 89.8 FL (78-98); MEAN PLATELET VOLUME 8.6 FL (7.4-10.4); PLATELET COUNT 103 X10'3 (140-440); RED CELL DISTRIBUTION WIDTH 23.6 % (11.5-14.5)
--- NOTE | 2023-05-03 13:28 | NUR ---
Patient at nuclear medicine
[2023-05-03 13:29] LABS: APTT 27 SECONDS (22-32); INR 1.1 INR; PROTHROMBIN TIME 11.6 SECONDS (9.0-12.0)
[2023-05-03 13:33] LABS: ALANINE AMINOTRANSFERASE 16 U/L (12-78); ALBUMIN 2.1 G/DL (3.4-5.0); ALBUMIN/GLOBULIN RATIO 0.4 (1.1-1.5); ALKALINE PHOSPHATASE 65 IU/L (46-116); ANION GAP 9 (8-16); ASPARTATE AMINO TRANSFERASE 15 U/L (10-37); BILIRUBIN,TOTAL 0.4 MG/DL (0.1-1.0); BLOOD UREA NITROGEN 28 MG/DL (7-18); BUN/CREATININE RATIO 15.5 (10.0-20.0); CHLORIDE 103 MMOL/L (99-107); CREATININE 1.81 MG/DL (0.40-0.90); GLUCOSE 113 MG/DL (70-104); POTASSIUM 4.1 MMOL/L (3.5-5.1); SODIUM 138 MMOL/L (135-145); TOTAL CARBON DIOXIDE 25.7 MMOL/L (24-32); TOTAL PROTEIN 7.3 G/DL (6.4-8.2); eCRCL 22 ML/MIN; eGFR 27 ML/MIN
[2023-05-03 13:40] LABS: WHITE BLOOD COUNT 46.6 X10'3 (4.5-11.0)
[2023-05-03 13:41] LABS: HEMOGLOBIN 6.9 g/dl (12.0-16.0)
[2023-05-03] MEDS ORDERED: magnesium 4gm in 100ml NS 100 ML IV PRN (13:55)
[2023-05-03] MEDS ORDERED: magnesium hydroxide 30ml (MOM) UD suspension PO PRN (13:55)
[2023-05-03] MEDS ORDERED: mag hydrox/Alum hydrox/simeth 30ml oral suspension PO PRN (13:55)
[2023-05-03] MEDS ORDERED: potassium Cl 20 mEq SR tablet PO PRN ×2 (13:55)
[2023-05-03] MEDS ORDERED: potassium Cl 40MEQ/1/2NS 520ml 520 ML IV PRN (13:55)
[2023-05-03] MEDS ORDERED: magnesium 2GM in 50ml NS 50 ML IV PRN (13:55)
[2023-05-03] MEDS ORDERED: acetaminophen 325mg tablet PO PRN (13:55)
[2023-05-03] MEDS ORDERED: magnesium Cl slow-release 64mg tablet PO PRN (13:55)
[2023-05-03] MEDS: HYDROcodone/acetaminophen 5mg/325mg tablet PO PRN ×2 (14:14→19:30)
[2023-05-03 14:34] LABS: NUCLEATED RED BLOOD CELLS 1 /100WBC (0-0); TOTAL CELLS COUNTED 100
[2023-05-03 14:36] LABS: MAGNESIUM 1.7 MG/DL (1.5-2.4)
[2023-05-03 14:39] LABS: SMUDGE CELLS 1+
[2023-05-03 14:40] LABS: POLYCHROMASIA 1+; TEAR DROP CELLS FEW
[2023-05-03 14:45] LABS: ANISOCYTOSIS 3+; PLATELET ESTIMATE DECREASED
[2023-05-03 14:47] LABS: HYPOCHROMASIA 1+
[2023-05-03 16:42] VITALS: BP 134/56; PULSE 92; RESP 14; TEMP 98.6
[2023-05-03 16:51] VITALS: BP 134/56; PULSE 93; RESP 16; TEMP 98.1
[2023-05-03 17:06] VITALS: BP 138/77; PULSE 92; RESP 15; TEMP 98.2
--- NOTE | 2023-05-03 18:30 | NUR ---
Problems reprioritized. Patient report given TO EM MEJIAS, questions answered & plan of care reviewed with .
[2023-05-03 18:40] VITALS: BP 137/65; PULSE 95; RESP 19; TEMP 98.2
[2023-05-03 19:00] VITALS: RESP 20; O2SAT 94
[2023-05-03] MEDS: K and/or MAG REPLACEMENT MC SCH (20:00)
[2023-05-03] MEDS: docusate sod 100mg capsule PO SCH (21:15)
[2023-05-04] MEDS: HYDROcodone/acetaminophen 10/325mg tab PO PRN ×2 (05:11→17:15)
[2023-05-04] MEDS ORDERED: LORazepam 2 mg/ml vial IV ONE (05:30)
[2023-05-04 06:00] VITALS: BP 126/59; PULSE 101; RESP 15; TEMP 98.3; O2SAT 96
[2023-05-04 06:08] LABS: HEMATOCRIT 28.3 % (35.0-45.0); MEAN CORPUSCULAR HEMOGLOBIN 28.6 PG (27.0-31.0); MEAN CORPUSCULAR HGB CONC 31.8 g/dL (33.0-36.5); MEAN CORPUSCULAR VOLUME 89.8 FL (78-98); MEAN PLATELET VOLUME 8.7 FL (7.4-10.4); PLATELET COUNT 119 X10'3 (140-440); RED BLOOD COUNT 3.15 X10'6 (4.20-5.60); RED CELL DISTRIBUTION WIDTH 21.8 % (11.5-14.5)
--- NOTE | 2023-05-04 06:15 | NUR ---
Patient in room ORTHO 4024. I have received report from Sahara MEJIAS and had the opportunity to ask questions and assume patient care.
--- NOTE | 2023-05-04 06:35 | NUR ---
Problems reprioritized. Patient report given, questions answered & plan of care reviewed with NAI GRIGGS.
[2023-05-04 06:39] LABS: WHITE BLOOD COUNT 57.4 X10'3 (4.5-11.0)
--- NOTE | 2023-05-04 06:48 | NUR ---
PAGER ID: [phone] MESSAGE: [id number]- Kris P- Patient WBC 57.4. Pls advise? DEMETRI Gilmore [phone]
--- NOTE | 2023-05-04 06:57 | NUR ---
Dr. Quinones called back and advised to call the day doctor. Once list is available I will call the hospitalist.
[2023-05-04 07:19] LABS: ALANINE AMINOTRANSFERASE 16 U/L (12-78); ALBUMIN 2.2 G/DL (3.4-5.0); ALBUMIN/GLOBULIN RATIO 0.4 (1.1-1.5); ALKALINE PHOSPHATASE 73 IU/L (46-116); ANION GAP 16 (8-16); ASPARTATE AMINO TRANSFERASE 19 U/L (10-37); BILIRUBIN,TOTAL 0.5 MG/DL (0.1-1.0); BLOOD UREA NITROGEN 30 MG/DL (7-18); BUN/CREATININE RATIO 16.9 (10.0-20.0); CALCIUM 9.1 MG/DL (8.5-10.1); CHLORIDE 100 MMOL/L (99-107); CHOLESTEROL 112 MG/DL (0-200); CREATININE 1.78 MG/DL (0.40-0.90); GLUCOSE 118 MG/DL (70-104); HDL CHOLESTEROL 16 MG/DL (35-60); LDL CHOLESTEROL 47 MG/DL (50-100); MAGNESIUM 1.8 MG/DL (1.5-2.4); SODIUM 138 MMOL/L (135-145); TOTAL PROTEIN 7.9 G/DL (6.4-8.2); TRIGLYCERIDES 195 MG/DL (20-135); eCRCL 22 ML/MIN; eGFR 28 ML/MIN
[2023-05-04 07:22] LABS: % IRON SATURATION 38 % (11-46); FERRITIN 4251 NG/ML (8-252); IRON 62 UG/DL (49-151); TOTAL IRON BINDING CAPACITY 163 UG/DL (259-388)
[2023-05-04] MEDS: atorvastatin 20mg tablet PO SCH (07:48)
[2023-05-04] MEDS: aspirin 325mg tablet PO SCH (07:48)
[2023-05-04] MEDS: docusate sod 100mg capsule PO SCH ×2 (07:48→19:45)
[2023-05-04 08:00] VITALS: RESP 15; O2SAT 96
[2023-05-04] MEDS ORDERED: enoxaparin 40mg/0.4ml syringe SUBCUT SCH (08:00)
[2023-05-04] MEDS: K and/or MAG REPLACEMENT MC SCH ×2 (08:00→19:50)
[2023-05-04 08:40] LABS: TOTAL CELLS COUNTED 100
[2023-05-04 08:45] LABS: ANISOCYTOSIS 3+; LARGE PLATELETS FEW; PLATELET ESTIMATE DECREASED
[2023-05-04 08:46] LABS: POLYCHROMASIA 1+
--- NOTE | 2023-05-04 09:28 | NUR ---
PAGER ID: [phone] MESSAGE: [id number]- Kris,P- Patient WBC is 57.4. Pls advise? DEMETRI rueda [phone]
[2023-05-04] MEDS ORDERED: nitroGLYCERIN 0.4mg SUBLingual tab SL PRN (09:45)
--- NOTE | 2023-05-04 09:45 | NUR ---
Dr. Posada called back and agve ok to place on o2.
--- NOTE | 2023-05-04 09:45 | NUR ---
Radiologist called and advised that the patient MRI shows acute stroke in left partial lobe. I advise Dr. Posada of this and he asked that I talk to Linette stroke nurse. He said to have linette reach out to the teleneuro I advised linette of this and she is reaching out
--- NOTE | 2023-05-04 09:45 | NUR ---
PAGER ID: [phone] MESSAGE: [id number] Kris, P- patient o2 is 88-89%. ok to put o2 on? Pls advise? rufina rueda [phone]
[2023-05-04 10:00] VITALS: BP 140/58; PULSE 100; RESP 16; TEMP 98.3; O2SAT 90
[2023-05-04] MEDS ORDERED: BENA10TA75 PO (10:22)
[2023-05-04] MEDS ORDERED: MONT-40 PO (10:22)
[2023-05-04] MEDS ORDERED: FEBU40TA3 PO (10:22)
[2023-05-04 11:48] LABS: INR 1.1 INR; PROTHROMBIN TIME 11.5 SECONDS (9.0-12.0)
[2023-05-04] MEDS ORDERED: WARF-55 PO (12:21)
[2023-05-04 15:30] LABS: APTT 32 SECONDS (22-32); INR 1.1 INR; PROTHROMBIN TIME 11.4 SECONDS (9.0-12.0)
--- NOTE | 2023-05-04 15:47 | NUR ---
patient gave watch to son [facility]
[2023-05-04] MEDS: heparin 25,000 UNIT/250ml bag 250 ML IV PRN (16:01)
--- NOTE | 2023-05-04 17:30 | NUR ---
I have reviewed and agree with interventions, assessments, and documentation by Deirdre Stahl LVN.
[2023-05-04 18:00] VITALS: BP 163/61; PULSE 94; RESP 16; TEMP 99.1; O2SAT 98
--- NOTE | 2023-05-04 18:17 | NUR ---
PAGER ID: [phone] MESSAGE: [id number]-Jannie Garner- Do you want patient to be on coumadin and heparin drip at the same time.? PLs advise? Ezra rueda [phone]
--- NOTE | 2023-05-04 18:18 | NUR ---
Dr. doll called back and stated that patient is not to be on Coumadin along with heparin. Will start Coumadin tomorrow
--- NOTE | 2023-05-04 18:28 | NUR ---
Problems reprioritized. Patient report given, questions answered & plan of care reviewed with Sahara MEJIAS.
[2023-05-04 20:01] VITALS: RESP 20; O2SAT 98
[2023-05-04] MEDS ORDERED: warfarin 5mg tablet PO SCH ×2 (21:00)
[2023-05-04] MEDS ORDERED: atorvastatin 10mg tablet PO SCH (21:00)
[2023-05-04 22:00] VITALS: BP 154/51; PULSE 97; RESP 24; TEMP 98.8; O2SAT 98
[2023-05-05] MEDS: ondansetron/PF 4mg/2ml inj IV PRN (01:21)
[2023-05-05 02:06] VITALS: BP 153/58; PULSE 103; RESP 20; TEMP 100; O2SAT 98
[2023-05-05 06:00] VITALS: BP 117/62; PULSE 107; RESP 15; TEMP 99.5; O2SAT 96
--- NOTE | 2023-05-05 06:23 | NUR ---
Problems reprioritized. Patient report given, questions answered & plan of care reviewed with MAGALIE ROLAND.
[2023-05-05 06:53] LABS: HEMOGLOBIN 7.7 g/dl (12.0-16.0); MEAN CORPUSCULAR HEMOGLOBIN 28.1 PG (27.0-31.0)
[2023-05-05 06:56] LABS: HEMATOCRIT 24.8 % (35.0-45.0); MEAN CORPUSCULAR HGB CONC 30.8 g/dL (33.0-36.5); MEAN CORPUSCULAR VOLUME 91.4 FL (78-98); MEAN PLATELET VOLUME 8.8 FL (7.4-10.4); PLATELET COUNT 85 X10'3 (140-440); RED BLOOD COUNT 2.72 X10'6 (4.20-5.60); RED CELL DISTRIBUTION WIDTH 21.6 % (11.5-14.5)
--- NOTE | 2023-05-05 07:10 | NUR ---
Patient in room ORTHO 4024. I have received report from ZACKARY MEJIAS and had the opportunity to ask questions and assume patient care.
[2023-05-05 07:22] LABS: ALANINE AMINOTRANSFERASE 14 U/L (12-78); ALBUMIN 1.8 G/DL (3.4-5.0); ALBUMIN/GLOBULIN RATIO 0.4 (1.1-1.5); ALKALINE PHOSPHATASE 66 IU/L (46-116); ANION GAP 9 (8-16); ASPARTATE AMINO TRANSFERASE 17 U/L (10-37); BILIRUBIN,TOTAL 0.4 MG/DL (0.1-1.0); BLOOD UREA NITROGEN 38 MG/DL (7-18); BUN/CREATININE RATIO 20.3 (10.0-20.0); CALCIUM 8.9 MG/DL (8.5-10.1); CHLORIDE 102 MMOL/L (99-107); CREATININE 1.87 MG/DL (0.40-0.90); GLUCOSE 115 MG/DL (70-104); MAGNESIUM 1.7 MG/DL (1.5-2.4); POTASSIUM 4.5 MMOL/L (3.5-5.1); SODIUM 134 MMOL/L (135-145); TOTAL CARBON DIOXIDE 22.9 MMOL/L (24-32); TOTAL PROTEIN 6.8 G/DL (6.4-8.2); eCRCL 21 ML/MIN; eGFR 26 ML/MIN
[2023-05-05] MEDS: K and/or MAG REPLACEMENT MC SCH ×2 (08:00→20:00)
[2023-05-05] MEDS: heparin 25,000 UNIT/250ml bag 250 ML IV PRN (08:07)
[2023-05-05] MEDS: levoTHYROXINE 25mcg tablet PO SCH (08:08)
[2023-05-05] MEDS: gabapentin 300mg capsule PO SCH (08:09)
[2023-05-05] MEDS: aspirin 325mg tablet PO SCH (08:09)
[2023-05-05] MEDS: docusate sod 100mg capsule PO SCH ×2 (08:09→20:04)
[2023-05-05] MEDS: atorvastatin 20mg tablet PO SCH (08:10)
[2023-05-05] MEDS: loratadine 10mg tablet PO SCH (08:10)
[2023-05-05] MEDS: pantoprazole 40mg Tablet.DR PO SCH (08:10)
[2023-05-05] MEDS: ESCITALOPRAM OXALATE 5 MG TABLET PO SCH (08:10)
[2023-05-05 08:29] LABS: TOTAL CELLS COUNTED 100
[2023-05-05 08:30] LABS: ANISOCYTOSIS 3+; PLATELET ESTIMATE DECREASED; SMUDGE CELLS 2+
[2023-05-05 10:00] VITALS: BP 156/52; PULSE 102; RESP 18; TEMP 98.2; O2SAT 94
--- NOTE | 2023-05-05 11:47 | NUR ---
O2 Sat at rest on room air:_88__% If below 89%: Recovery O2 Sat at rest on _2__LPM:__92_%:___% via__nc (mask/nasal cannula, etc..) No further documentation is necessary. If O2 Sat did not drop below 89% on room air,ambulate patient on room air. O2 Sat while ambulating on room air:___% Recovery O2 Sat while ambulating on ___LPM:___% No further documentation is necessary. If patient does not drop below 89% while ambulating, he/she does not qualify for home O2.
[2023-05-05] MEDS ORDERED: ATOR20TA66 PO (12:19)
[2023-05-05] MEDS ORDERED: ENOX100S3 SQ (12:19)
[2023-05-05 14:27] LABS: APTT 33 SECONDS (22-32)
--- NOTE | 2023-05-05 15:10 | NUR ---
WOUND INFECTION EDUCATION PROVIDED BY WOUND CARE 1. Patient instructed to call their primary doctor, or go the ED immediately if any of the following symptoms occur: * Increased pain in wound * Increase in drainage from the wound * Redness in the skin surrounding the wound * Warmth in the skin surrounding the wound * Bleeding from the wound * Temperature of 101 or greater 2. If any of these occur while in the hospital tell a nurse immediately. Addendum: 05/05/23 at 1511 by Michelle Hahn LVN Amended: Links added.
--- NOTE | 2023-05-05 15:24 | NUR ---
Heparin infusion DC. patient to be started on Lovenox 100mg Q12hr and warfarin. Dr beasley aware of patients platelets of 85. patient walked by PT see note with regards patient neally falling. DC on hold for now. will continue to monitor
[2023-05-05 18:00] VITALS: BP 169/67; PULSE 107; RESP 18; TEMP 100.4; O2SAT 95
--- NOTE | 2023-05-05 18:51 | NUR ---
Problems reprioritized. Patient report given, questions answered & plan of care reviewed with brant MEJIAS.
[2023-05-05 20:00] VITALS: RESP 16; O2SAT 94
[2023-05-05] MEDS: HYDROcodone/acetaminophen 10/325mg tab PO PRN (20:04)
[2023-05-05] MEDS: enoxaparin 100mg/ml syringe SUBCUT SCH (20:10)
[2023-05-05] MEDS ORDERED: warfarin 5mg tablet PO SCH (21:00)
[2023-05-05 22:00] VITALS: BP 152/55; PULSE 113; RESP 16; TEMP 101.3; O2SAT 94
[2023-05-06 02:13] VITALS: TEMP 98.1
[2023-05-06 06:00] VITALS: BP 148/53; PULSE 102; RESP 18; TEMP 97.8; O2SAT 91
--- NOTE | 2023-05-06 06:15 | NUR ---
Patient in room ORTHO 4024. I have received report from MAGALIE Romero and had the opportunity to ask questions and assume patient care.
--- NOTE | 2023-05-06 06:39 | NUR ---
Problems reprioritized. Patient report given, questions answered & plan of care reviewed with MAGALIE ASTORGA.
[2023-05-06 07:35] LABS: ALANINE AMINOTRANSFERASE 19 U/L (12-78); ALBUMIN 1.9 G/DL (3.4-5.0); ALBUMIN/GLOBULIN RATIO 0.4 (1.1-1.5); ALKALINE PHOSPHATASE 87 IU/L (46-116); ANION GAP 10 (8-16); ASPARTATE AMINO TRANSFERASE 21 U/L (10-37); BILIRUBIN,TOTAL 0.6 MG/DL (0.1-1.0); BLOOD UREA NITROGEN 42 MG/DL (7-18); CALCIUM 9.1 MG/DL (8.5-10.1); CHLORIDE 98 MMOL/L (99-107); CREATININE 2.33 MG/DL (0.40-0.90); GLUCOSE 114 MG/DL (70-104); MAGNESIUM 1.7 MG/DL (1.5-2.4); POTASSIUM 4.5 MMOL/L (3.5-5.1); SODIUM 132 MMOL/L (135-145); TOTAL CARBON DIOXIDE 24.4 MMOL/L (24-32); TOTAL PROTEIN 7.2 G/DL (6.4-8.2); eCRCL 17 ML/MIN; eGFR 20 ML/MIN
[2023-05-06] MEDS: gabapentin 300mg capsule PO SCH (07:42)
[2023-05-06] MEDS: loratadine 10mg tablet PO SCH (07:43)
[2023-05-06] MEDS: atorvastatin 20mg tablet PO SCH (07:43)
[2023-05-06] MEDS: pantoprazole 40mg Tablet.DR PO SCH (07:43)
[2023-05-06] MEDS: docusate sod 100mg capsule PO SCH ×2 (07:44→21:04)
[2023-05-06] MEDS: ESCITALOPRAM OXALATE 5 MG TABLET PO SCH (07:44)
[2023-05-06] MEDS: levoTHYROXINE 25mcg tablet PO SCH (07:45)
[2023-05-06 07:47] LABS: HEMOGLOBIN 8.1 g/dl (12.0-16.0)
[2023-05-06 07:54] LABS: HEMATOCRIT 27.1 % (35.0-45.0); MEAN CORPUSCULAR HEMOGLOBIN 28.1 PG (27.0-31.0); MEAN CORPUSCULAR HGB CONC 29.9 g/dL (33.0-36.5); MEAN PLATELET VOLUME 8.7 FL (7.4-10.4); PLATELET COUNT 89 X10'3 (140-440); RED BLOOD COUNT 2.88 X10'6 (4.20-5.60); RED CELL DISTRIBUTION WIDTH 22.5 % (11.5-14.5)
[2023-05-06] MEDS: enoxaparin 100mg/ml syringe SUBCUT SCH ×2 (08:00→21:04)
[2023-05-06] MEDS: K and/or MAG REPLACEMENT MC SCH ×2 (08:00→20:00)
--- NOTE | 2023-05-06 08:06 | NUR ---
MESSAGE: estevan [id number] pt in room 4024A WBC 70,000 & plt is 89, do you still want me to administer the lovenox? Thank you
--- NOTE | 2023-05-06 09:02 | NUR ---
requested to nonadmin lovenox this morning. Continue to monitor pt.
[2023-05-06 09:47] LABS: INR 1.1 INR; PROTHROMBIN TIME 11.8 SECONDS (9.0-12.0)
[2023-05-06 10:00] VITALS: BP 136/56; PULSE 101; RESP 20; TEMP 98.2; O2SAT 94
[2023-05-06 10:54] LABS: ANISOCYTOSIS 3+; PLATELET ESTIMATE DECREASED; TOTAL CELLS COUNTED 100
[2023-05-06 10:55] LABS: SMUDGE CELLS 2+
[2023-05-06 12:20] LABS: BILIRUBIN,URINE NEGATIVE (Neg); CLARITY,URINE SLIGHTLY CLOUDY (Clear); COLOR,URINE YELLOW (Yellow); GLUCOSE, URINE 100 mg/dl (Neg); KETONES,URINE NEGATIVE (Neg); LEUKOCYTE ESTERASE ,URINE NEGATIVE (Neg); NITRITES, URINE NEGATIVE (Neg); OCCULT BLOOD,URINE NEGATIVE (Neg); PROTEIN,URINE 30 mg/dl (Neg)
[2023-05-06 12:34] LABS: UA COLLECTION TYPE OTHER
[2023-05-06 12:35] LABS: BACTERIA,URINE 4+ /HPF (Neg)
[2023-05-06 12:36] LABS: SQUAMOUS EPITHELIAL CELL,UR MODERATE /LPF (FEW)
[2023-05-06 12:37] LABS: RBC,URINE NONE SEEN /HPF (0-2)
[2023-05-06] MEDS: HYDROcodone/acetaminophen 10/325mg tab PO PRN ×3 (13:37→21:52)
--- NOTE | 2023-05-06 16:38 | NUR ---
Returned call to [facility] transfer center, as they were informing that the patient would not be accepted there d/t "capacity limitations". Nsg Mitering Machine Operator, Shahrzad notified. No answer at Case Management (Marysol or Josie Jimenez) numbers. Primary RN notified, Courtney, notified.
[2023-05-06] MEDS: ringers solution, lacted 1,000 ML IV SCH (17:12)
[2023-05-06 18:00] VITALS: BP 97/55; PULSE 107; RESP 18; TEMP 98.1; O2SAT 94
--- NOTE | 2023-05-06 18:00 | NUR ---
Patient in room ORTHO 4024. I have received report from MAGALIE Valdez and had the opportunity to ask questions and assume patient care.
[2023-05-06 18:23] LABS: THYROID STIMULATING HORMONE 1.67 ulU/ml (0.34-4.50); URIC ACID 11.1 MG/DL (2.5-6.2)
--- NOTE | 2023-05-06 18:28 | NUR ---
Problems reprioritized. Patient report given, questions answered & plan of care reviewed with MAGALIE Lou.
[2023-05-06] MEDS: warfarin 5mg tablet PO SCH (21:05)
[2023-05-06 22:00] VITALS: BP 152/60; PULSE 109; RESP 15; TEMP 97.1; O2SAT 94
[2023-05-07] VITALS (9 sets, daily range): BP systolic 127–165; BP diastolic 45–97; PULSE 69–114; RESP 17–22; TEMP 97.8–98.7; O2SAT 93–97
[2023-05-07] MEDS: ringers solution, lacted 1,000 ML IV SCH ×2 (01:55→11:30)
--- NOTE | 2023-05-07 06:13 | NUR ---
Problems reprioritized. Patient report given, questions answered & plan of care reviewed with MAGALIE Mcrae.
--- NOTE | 2023-05-07 06:38 | NUR ---
Patient in room ORTHO 4024. I have received report from Dasha and had the opportunity to ask questions and assume patient care.
[2023-05-07 07:23] LABS: MEAN CORPUSCULAR VOLUME 92.6 FL (78-98)
[2023-05-07 07:28] LABS: MEAN CORPUSCULAR HEMOGLOBIN 28.4 PG (27.0-31.0); MEAN CORPUSCULAR HGB CONC 30.7 g/dL (33.0-36.5); MEAN PLATELET VOLUME 8.8 FL (7.4-10.4); RED BLOOD COUNT 2.33 X10'6 (4.20-5.60); RED CELL DISTRIBUTION WIDTH 22.4 % (11.5-14.5)
[2023-05-07 07:30] LABS: INR 1.1 INR; PROTHROMBIN TIME 11.6 SECONDS (9.0-12.0)
[2023-05-07] MEDS: K and/or MAG REPLACEMENT MC SCH ×2 (07:30→20:00)
[2023-05-07 07:33] LABS: ALBUMIN 1.6 G/DL (3.4-5.0); ANION GAP 9 (8-16); BILIRUBIN,TOTAL 0.4 MG/DL (0.1-1.0); BLOOD UREA NITROGEN 48 MG/DL (7-18); BUN/CREATININE RATIO 21.1 (10.0-20.0); CALCIUM 8.3 MG/DL (8.5-10.1); CHLORIDE 100 MMOL/L (99-107); CREATININE 2.28 MG/DL (0.40-0.90); GLUCOSE 95 MG/DL (70-104); MAGNESIUM 1.6 MG/DL (1.5-2.4); POTASSIUM 4.6 MMOL/L (3.5-5.1); SODIUM 134 MMOL/L (135-145); TOTAL PROTEIN 5.7 G/DL (6.4-8.2); eCRCL 17 ML/MIN; eGFR 21 ML/MIN
[2023-05-07 07:34] LABS: ALANINE AMINOTRANSFERASE 21 U/L (12-78); ALBUMIN/GLOBULIN RATIO 0.4 (1.1-1.5); ALKALINE PHOSPHATASE 81 IU/L (46-116); ASPARTATE AMINO TRANSFERASE 23 U/L (10-37)
[2023-05-07 07:36] LABS: HEMATOCRIT 21.6 % (35.0-45.0); HEMOGLOBIN 6.6 g/dl (12.0-16.0); WHITE BLOOD COUNT 47.6 X10'3 (4.5-11.0)
[2023-05-07 07:37] LABS: PLATELET COUNT 73 X10'3 (140-440)
--- NOTE | 2023-05-07 07:42 | NUR ---
PAGER ID: [phone] MESSAGE: Donna Ponce 4024A Critical lab HGB 6.6 [id number]
[2023-05-07] MEDS: docusate sod 100mg capsule PO SCH ×2 (07:48→21:15)
[2023-05-07] MEDS: ESCITALOPRAM OXALATE 5 MG TABLET PO SCH (07:48)
[2023-05-07] MEDS: pantoprazole 40mg Tablet.DR PO SCH (07:48)
[2023-05-07] MEDS: levoTHYROXINE 25mcg tablet PO SCH (07:48)
[2023-05-07] MEDS: atorvastatin 20mg tablet PO SCH (07:48)
[2023-05-07] MEDS: loratadine 10mg tablet PO SCH (07:48)
[2023-05-07] MEDS: gabapentin 300mg capsule PO SCH (07:49)
[2023-05-07] MEDS ORDERED: CefTRIAXone/D5W-Rocephin 1gm 50 ML IV SCH (08:00)
[2023-05-07] MEDS: enoxaparin 100mg/ml syringe SUBCUT SCH (08:00)
[2023-05-07] MEDS ORDERED: allopurinol 100mg tablet PO SCH (08:30)
[2023-05-07 10:28] LABS: TOTAL CELLS COUNTED 100
--- NOTE | 2023-05-07 10:28 | NUR ---
unable to scan blood products. Blood bank called and they informed nurse to use blood and blood product administration record.
[2023-05-07 10:29] LABS: ANISOCYTOSIS 3+; PLATELET ESTIMATE DECREASED; SMUDGE CELLS 2+
--- NOTE | 2023-05-07 18:44 | NUR ---
Problems reprioritized. Patient report given, questions answered & plan of care reviewed with Maranda.
[2023-05-07] MEDS: albuterol 2.5 MG/3 ML nebule NEB PRN (20:19)
[2023-05-07] MEDS: warfarin 5mg tablet PO SCH (21:15)
[2023-05-07] MEDS: guaiFENesin 200mg/20mg codeine phos 10ml UD oral syrup PO PRN (21:15)
[2023-05-07] MEDS: HYDROcodone/acetaminophen 10/325mg tab PO PRN (21:17)
[2023-05-08] VITALS (11 sets, daily range): BP systolic 159–180; BP diastolic 57–74; PULSE 55–126; RESP 14–28; TEMP 97.1–97.6; O2SAT 92–98
[2023-05-08] MEDS: albuterol 2.5 MG/3 ML nebule NEB PRN ×3 (02:08→20:10)
[2023-05-08] MEDS: HYDROcodone/acetaminophen 10/325mg tab PO PRN ×2 (04:10→10:25)
[2023-05-08] MEDS ORDERED: furosemide 40mg/4ml inj IV ONE (05:05)
[2023-05-08 06:20] LABS: HEMATOCRIT 26.1 % (35.0-45.0); HEMOGLOBIN 8.2 g/dl (12.0-16.0); RED BLOOD COUNT 2.85 X10'6 (4.20-5.60)
[2023-05-08 06:23] LABS: MEAN CORPUSCULAR HEMOGLOBIN 28.9 PG (27.0-31.0); MEAN CORPUSCULAR HGB CONC 31.5 g/dL (33.0-36.5); MEAN CORPUSCULAR VOLUME 91.7 FL (78-98); MEAN PLATELET VOLUME 8.7 FL (7.4-10.4); PLATELET COUNT 69 X10'3 (140-440); RED CELL DISTRIBUTION WIDTH 20.3 % (11.5-14.5)
[2023-05-08 06:31] LABS: ALANINE AMINOTRANSFERASE 19 U/L (12-78); ALBUMIN 1.7 G/DL (3.4-5.0); ALBUMIN/GLOBULIN RATIO 0.3 (1.1-1.5); ALKALINE PHOSPHATASE 91 IU/L (46-116); ANION GAP 9 (8-16); ASPARTATE AMINO TRANSFERASE 24 U/L (10-37); BILIRUBIN,TOTAL 0.8 MG/DL (0.1-1.0); BLOOD UREA NITROGEN 43 MG/DL (7-18); BUN/CREATININE RATIO 21.7 (10.0-20.0); CALCIUM 8.7 MG/DL (8.5-10.1); CHLORIDE 100 MMOL/L (99-107); CREATININE 1.98 MG/DL (0.40-0.90); GLUCOSE 103 MG/DL (70-104); POTASSIUM 4.7 MMOL/L (3.5-5.1); SODIUM 133 MMOL/L (135-145); TOTAL CARBON DIOXIDE 24.5 MMOL/L (24-32); TOTAL PROTEIN 6.8 G/DL (6.4-8.2); eCRCL 20 ML/MIN; eGFR 24 ML/MIN
--- NOTE | 2023-05-08 06:32 | NUR ---
Problems reprioritized. Patient report given, questions answered & plan of care reviewed with BRIDGETTE TRIMBLE.
[2023-05-08 06:47] LABS: INR 1.2 INR
[2023-05-08 06:49] LABS: FIBRINOGEN 762 MG/DL (177-424)
[2023-05-08 06:53] LABS: WHITE BLOOD COUNT 44.3 X10'3 (4.5-11.0)
[2023-05-08 07:22] LABS: ANISOCYTOSIS 3+; PLATELET ESTIMATE DECREASED; SMUDGE CELLS 1+; TOTAL CELLS COUNTED 100
[2023-05-08 07:23] LABS: POIKILOCYTOSIS FEW
--- NOTE | 2023-05-08 07:33 | NUR ---
Pt was found to be in A-fib. Dr. Cole contacted and orders given to transfer pt to U. Pt transferred to U
[2023-05-08] MEDS: enoxaparin 100mg/ml syringe SUBCUT SCH (08:00)
[2023-05-08] MEDS: K and/or MAG REPLACEMENT MC SCH ×2 (08:00→20:00)
[2023-05-08] MEDS: CefTRIAXone 2gm/D5W 50ml BAG 50 ML IV SCH (08:00)
[2023-05-08 08:42] LABS: PRO BRAIN NATRIURETIC PEPTIDE 3310 PG/ML (0-450)
[2023-05-08] MEDS ORDERED: diltiazem 5mg/ml 5ml inj. IV STA (08:47)
[2023-05-08] MEDS: normal saline 500ml IV soln 500 ML IV SCH (09:44)
--- NOTE | 2023-05-08 09:48 | NUR ---
DR MELVIN CAME TO ASSESS PATIENT ADE THIS AM - ORDER RECEIVED AND NOTED - MD STATES CXR SHOWS A PNEUMONIA. UP THE THE CORRECT ANTIBIOTICS - ORDERS RECEIVED FOR IV PUSH DILTIAZEM 10MG WHICH WAS ADMINISTERED - BP 171-73 [place] 127 RR 32 TEMP 99.6 AND O2 IS 92% ON 4 LITERS - PT IS NOT HOME O2 DEPENDENT - WILL CONTINUE TO CLOSELY MONITOR
[2023-05-08] MEDS: allopurinol 100mg tablet PO SCH (10:24)
[2023-05-08] MEDS: levoTHYROXINE 25mcg tablet PO SCH (10:24)
[2023-05-08] MEDS: docusate sod 100mg capsule PO SCH ×2 (10:24→20:51)
[2023-05-08] MEDS: ESCITALOPRAM OXALATE 5 MG TABLET PO SCH (10:24)
[2023-05-08] MEDS: pantoprazole 40mg Tablet.DR PO SCH (10:24)
[2023-05-08] MEDS: gabapentin 300mg capsule PO SCH (10:25)
[2023-05-08] MEDS: azithromycin 250mg tablet PO SCH (10:25)
[2023-05-08] MEDS: loratadine 10mg tablet PO SCH (10:25)
[2023-05-08] MEDS: atorvastatin 20mg tablet PO SCH (10:25)
--- NOTE | 2023-05-08 15:34 | NUR ---
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 Pt initially on a regular diet though for unknown reasons changed to a CHO controlled diet 05/04 despite no A1c and BG 95-118 mg/dL throughout LOS not warranting a CHO controlled diet restriction. D/w RN recommendation for diet liberalization to regular which has now been implemented. Pt initially eating well, documented with average 96% PO intake of the first three meals though per EMR pt refused the next meal and with average 26% PO intake the following nine meals not meeting estimated nutrient needs. Pt seen at bedside, very [place]. RD encouraged PO intake and offered additional food with ONS recommendations to optimize nutrient intake however pt declined all recommendations. Pt states there is a lot of food she doesn't like though is unwilling to elaborate therefore unable to honor food preferences. RD once again encouraged PO intake. Pt verbalized understanding. LBM 05/03 per EMR. Pt receiving routine bowel care and has PRN bowel care available, d/w RN. Will continue to follow closely and make recommendations as appropriate. Recommendations: 1) Continue regular diet 2) Ensure Enlive TID if pt accepting; pt declined ONS/shakes/smoothies 05/08 3) NGT placement for EN if PO intake does not improve and is within POC 4) Routine and PRN bowel care 5) Scaled weight this admit; subsequent weekly scaled weights Addendum: 05/08/23 at [address] Amended: Links added.
[2023-05-08] MEDS ORDERED: LORazepam 0.5 MG tablet PO PRN (15:45)
--- NOTE | 2023-05-08 16:08 | NUR ---
2 RINGS REMOVED FROM PT PER HER REQUEST PLACED IN A CLEAR CONTAINER AND GIVEN TO PTS SON WHO IS AT BEDSIDE. RING ON LEFT FINGER WAS A YELLOWISH METAL WITH 2 CLEAR AND 1 LIGHT BLUE STONE, RING ON RIGHT RING FINGER RESEMBLES [place] GOLD.
--- NOTE | 2023-05-08 16:12 | NUR ---
PT IS AWAKE AND ALERT THIS PM AND ABLE TO ANSWER QUESTIONS. IS PALE AND TACHYPNEIC. VERY GRINDSTONE. THIS MORNING PT WAS VERY LETHARGIC AND UNABLE TO FOLLOW COMMANDS. STROKE + IN LEFT PARIETAL LOBE. VISUAL NEGLECT ON THE LEFT NOTED, OTHERWISE NIH UNREMARKABLE.
--- NOTE | 2023-05-08 16:21 | NUR ---
Report given to Azeem from [facility], awaiting bed at this time
--- NOTE | 2023-05-08 17:34 | NUR ---
Paperwork signed and faxed, awaiting bed
--- NOTE | 2023-05-08 18:28 | NUR ---
Problems reprioritized. Patient report given, questions answered & plan of care reviewed with Addendum: 05/08/23 at 1828 by Alejandro Pineda RN Amended: Links added.
[2023-05-08] MEDS ORDERED: diltiazem 5mg/ml 5ml inj. IV ONE (19:20)
[2023-05-08] MEDS ORDERED: diltiazem-NS 100mg/100ml 100 ML IV SCH (19:35)
[2023-05-08] MEDS ORDERED: diltiazem 30mg tablet PO SCH (20:00)
--- NOTE | 2023-05-08 20:36 | NUR ---
MD notified about pt HR, BP, and rhythm with order for Cardizem drip and IVP. MD ordered Cardizem 15 mg IVP once, with call back of results. Per MD will hold off on Cardizem drip
[2023-05-08] MEDS: warfarin 5mg tablet PO SCH (20:46)
[2023-05-08] MEDS ORDERED: hydrALAZINE 20mg/ml inj. IV PRN (23:20)
[2023-05-08] MEDS: morphine 2 MG/ML inj. syringe IV PRN (23:53)
[2023-05-09] VITALS (13 sets, daily range): BP systolic 124–205; BP diastolic 51–130; PULSE 67–124; RESP 16–30; TEMP 97.2–97.9; O2SAT 86–95
[2023-05-09] MEDS: HYDROcodone/acetaminophen 10/325mg tab PO PRN ×2 (02:12→20:04)
[2023-05-09] MEDS: ondansetron/PF 4mg/2ml inj IV PRN ×2 (02:24→23:42)
--- NOTE | 2023-05-09 06:37 | NUR ---
Problems reprioritized. Patient report given, questions answered & plan of care reviewed with Anne Marie MEJIAS.
--- NOTE | 2023-05-09 06:41 | NUR ---
lovenox order from yesterday not non-administered, plt count was low, i have non-administered it from yesterday in order to have todays order active
--- NOTE | 2023-05-09 06:44 | NUR ---
Per Evelia RN, Dr Cole did not want to do cartizem drip and patient was in sinus rhythm but wanted to leave order on incase we needed it. I have non-administered it from last night and will clarify order with AM
[2023-05-09 07:57] LABS: MEAN PLATELET VOLUME 9.2 FL (7.4-10.4)
[2023-05-09] MEDS: enoxaparin 100mg/ml syringe SUBCUT SCH (08:00)
[2023-05-09 08:02] LABS: HEMATOCRIT 28.7 % (35.0-45.0); MEAN CORPUSCULAR HGB CONC 31.2 g/dL (33.0-36.5); PLATELET COUNT 84 X10'3 (140-440); RED BLOOD COUNT 3.09 X10'6 (4.20-5.60); RED CELL DISTRIBUTION WIDTH 20.5 % (11.5-14.5)
[2023-05-09 08:08] LABS: INR 2.3 INR; PROTHROMBIN TIME 23.6 SECONDS (9.0-12.0)
[2023-05-09 08:11] LABS: ALANINE AMINOTRANSFERASE 13 U/L (12-78); ALBUMIN 1.6 G/DL (3.4-5.0); ALBUMIN/GLOBULIN RATIO 0.3 (1.1-1.5); ALKALINE PHOSPHATASE 109 IU/L (46-116); ANION GAP 13 (8-16); ASPARTATE AMINO TRANSFERASE 38 U/L (10-37); BILIRUBIN,TOTAL 0.9 MG/DL (0.1-1.0); BLOOD UREA NITROGEN 47 MG/DL (7-18); BUN/CREATININE RATIO 19.7 (10.0-20.0); CALCIUM 9.2 MG/DL (8.5-10.1); CHLORIDE 100 MMOL/L (99-107); CREATININE 2.39 MG/DL (0.40-0.90); GLUCOSE 117 MG/DL (70-104); MAGNESIUM 1.4 MG/DL (1.5-2.4); PHOSPHORUS 5.2 MG/DL (2.3-4.5); POTASSIUM 4.8 MMOL/L (3.5-5.1); SODIUM 137 MMOL/L (135-145); TOTAL CARBON DIOXIDE 23.8 MMOL/L (24-32); eCRCL 16 ML/MIN; eGFR 20 ML/MIN
[2023-05-09] MEDS: CefTRIAXone 2gm/D5W 50ml BAG 50 ML IV SCH (08:31)
[2023-05-09] MEDS: normal saline 500ml IV soln 500 ML IV SCH (08:31)
[2023-05-09] MEDS: ESCITALOPRAM OXALATE 5 MG TABLET PO SCH (08:33)
[2023-05-09] MEDS: azithromycin 250mg tablet PO SCH (08:33)
[2023-05-09] MEDS: allopurinol 100mg tablet PO SCH (08:38)
[2023-05-09] MEDS: atorvastatin 20mg tablet PO SCH (08:38)
[2023-05-09] MEDS: pantoprazole 40mg Tablet.DR PO SCH (08:38)
[2023-05-09] MEDS: docusate sod 100mg capsule PO SCH ×2 (08:38→20:04)
[2023-05-09] MEDS: loratadine 10mg tablet PO SCH (08:38)
[2023-05-09] MEDS: gabapentin 300mg capsule PO SCH (08:39)
[2023-05-09] MEDS: levoTHYROXINE 25mcg tablet PO SCH (08:40)
--- NOTE | 2023-05-09 08:47 | NUR ---
MORTGAGE LOAN CLOSER WBC 66.[address] MELVIN. STEPHAN, U 1128 MANUEL, P 3199 WBC 66.0. PT VERY SOB W/ WHEEZES AND SEEMS SLIGHTLY CONFUSED.
[2023-05-09] MEDS ORDERED: magnesium 2GM in 50ml NS 50 ML IV ONE (08:55)
[2023-05-09] MEDS: K and/or MAG REPLACEMENT MC SCH ×2 (08:56→20:00)
[2023-05-09] MEDS: diltiazem 30mg tablet PO SCH ×3 (09:20→20:04)
[2023-05-09 09:27] LABS: ANISOCYTOSIS 3+; PLATELET ESTIMATE DECREASED; POIKILOCYTOSIS FEW; SMUDGE CELLS 1+; TOTAL CELLS COUNTED 100
[2023-05-09 10:11] LABS: PRO BRAIN NATRIURETIC PEPTIDE 6920 PG/ML (0-450)
--- NOTE | 2023-05-09 11:48 | NUR ---
Miguel Consult: Bertin Johnson w/ reynaldo galindo prior surgical wound slowly healing without depth per [facility] note. Addendum: 05/09/23 at [address] Amended: Links added.
[2023-05-09] MEDS: normal saline 1000ml 1,000 ML IV SCH ×2 (14:41→22:15)
[2023-05-09] MEDS ORDERED: albumin (human) 25% 100 ML IV solution IV ONE (15:05)
--- NOTE | 2023-05-09 16:12 | NUR ---
Patient has been very sleepy this afternoon and unable to take oral medications and follow direction when woken from sleep. Anne Marie, [facility] 9328 Kris, P [phone] Posada
--- NOTE | 2023-05-09 18:43 | NUR ---
Report given to Stacy Kumar RN, Dr Posada and Stacy Kumar aware that patient has been responding less and sleeping more through afternoon. Awaiting bed at [facility] at this time.
--- NOTE | 2023-05-09 18:50 | NUR ---
Patient in room PCU 3019. I have received report from STEPHAN MEJIAS and had the opportunity to ask questions and assume patient care.
[2023-05-09] MEDS ORDERED: albumin (human) 25% 100 ML IV solution IV SCH (20:00)
[2023-05-09] MEDS: albuterol 2.5 MG/3 ML nebule NEB PRN ×2 (20:04→23:34)
[2023-05-09] MEDS: albumin (human) 25% 100 ML IV solution IV SCH (20:07)
[2023-05-09] MEDS: guaiFENesin 200mg/20mg codeine phos 10ml UD oral syrup PO PRN (20:17)
[2023-05-09] MEDS ORDERED: warfarin 2.5mg tablet PO SCH (21:00)
[2023-05-09] MEDS ORDERED: albuterol 2.5 MG/3 ML nebule NEB PRN (23:54)
[2023-05-09] MEDS ORDERED: furosemide 20 MG/2 ML vial IV ONE (23:55)
--- NOTE | 2023-05-09 23:55 | NUR ---
PAGED DR. HERNANDEZ ,CALLED BACK AND WAS INFORMED ABOUT THE PATIENT HAVING SHORT OF BREATH AND DESAT AT 85 @4LNC, RT PAGED AND CAME DID THE BREATHING TREATMENT SATS @87. ORDERED CHEST X-RAY AND PT. PLACED ON HIGH FLOW @15L SATTING 88%
[2023-05-10] VITALS (14 sets, daily range): BP systolic 123–129; BP diastolic 60–62; PULSE 67–142; RESP 20–26; TEMP 97.3; O2SAT 90–93
[2023-05-10] MEDS ORDERED: ipratropium/albuterol 3ml nebule NEB PRN
--- NOTE | 2023-05-10 00:30 | NUR ---
CALLED AGAIN DR. HERNANDEZ PT O2 LEVEL STILL @ 88 WITH ORDER OF LASIX 20NG IV. PATIENT REPOSITIONED WITH HEAD UP IN THE BED, O2 SAT WENT UP TO 92.
[2023-05-10] MEDS: normal saline 500ml IV soln 500 ML IV SCH (00:50)
[2023-05-10] MEDS: diltiazem 30mg tablet PO SCH ×2 (02:00→08:00)
[2023-05-10] MEDS: albumin (human) 25% 100 ML IV solution IV SCH ×2 (02:12→08:00)
[2023-05-10] MEDS ORDERED: diltiazem 5mg/ml 5ml inj. IV ONE (02:25)
--- NOTE | 2023-05-10 02:30 | NUR ---
CALLED DR. HERNANDEZ HR UP TO 142/MIN WITH ORDER FOR CARDIZEM PUSH.
[2023-05-10] MEDS ORDERED: diltiazem-NS 100mg/100ml 100 ML IV SCH (04:50)
--- NOTE | 2023-05-10 04:50 | NUR ---
HR [id number]/MIN CALLED DR. HERNANDEZ WITH ORDER FOR GONZALEZ NICHOLS.
--- NOTE | 2023-05-10 05:00 | NUR ---
BED AVAILABLE IN [place] WHEN PATIENT IS STABLE FOR TRANSFER.
[2023-05-10] MEDS: normal saline 1000ml 1,000 ML IV SCH (06:15)
[2023-05-10] MEDS: levoTHYROXINE 25mcg tablet PO SCH (07:00)
[2023-05-10 07:02] LABS: RED CELL DISTRIBUTION WIDTH 20.9 % (11.5-14.5)
[2023-05-10 07:03] LABS: MEAN CORPUSCULAR HEMOGLOBIN 29.1 PG (27.0-31.0); MEAN CORPUSCULAR HGB CONC 31.3 g/dL (33.0-36.5); PLATELET COUNT 54 X10'3 (140-440)
[2023-05-10 07:13] LABS: PROTHROMBIN TIME 43.9 SECONDS (9.0-12.0)
[2023-05-10 07:38] LABS: ALANINE AMINOTRANSFERASE 622 U/L (12-78); ALBUMIN 3.8 G/DL (3.4-5.0); ALBUMIN/GLOBULIN RATIO 1.1 (1.1-1.5); ALKALINE PHOSPHATASE 100 IU/L (46-116); ANION GAP 16 (8-16); BLOOD UREA NITROGEN 72 MG/DL (7-18); BUN/CREATININE RATIO 18.8 (10.0-20.0); CALCIUM 8.4 MG/DL (8.5-10.1); CHLORIDE 99 MMOL/L (99-107); CREATININE 3.84 MG/DL (0.40-0.90); GLUCOSE 143 MG/DL (70-104); MAGNESIUM 2.4 MG/DL (1.5-2.4); PHOSPHORUS 8.2 MG/DL (2.3-4.5); SODIUM 137 MMOL/L (135-145); TOTAL CARBON DIOXIDE 22.1 MMOL/L (24-32); TOTAL PROTEIN 7.4 G/DL (6.4-8.2); URIC ACID 10.9 MG/DL (2.5-6.2); eCRCL 10 ML/MIN; eGFR 11 ML/MIN
[2023-05-10 07:40] LABS: INR 4.5 INR
[2023-05-10 07:42] LABS: ASPARTATE AMINO TRANSFERASE 1789 U/L (10-37)
[2023-05-10 07:44] LABS: HEMOGLOBIN 6.7 g/dl (12.0-16.0)
[2023-05-10 07:45] LABS: HEMATOCRIT 21.3 % (35.0-45.0)
[2023-05-10 07:52] LABS: TOTAL CELLS COUNTED 100
[2023-05-10 07:53] LABS: ANISOCYTOSIS 3+; ELLIPTOCYTES FEW; HYPOCHROMASIA 1+; PLATELET ESTIMATE DECREASED; POLYCHROMASIA 1+; SCHISTOCYTES FEW
[2023-05-10 07:54] LABS: SMUDGE CELLS FEW
[2023-05-10] MEDS: ESCITALOPRAM OXALATE 5 MG TABLET PO SCH (08:00)
[2023-05-10] MEDS: azithromycin 250mg tablet PO SCH (08:00)
[2023-05-10] MEDS: gabapentin 300mg capsule PO SCH (08:00)
[2023-05-10] MEDS: atorvastatin 20mg tablet PO SCH (08:00)
[2023-05-10] MEDS: loratadine 10mg tablet PO SCH (08:00)
[2023-05-10] MEDS: docusate sod 100mg capsule PO SCH (08:00)
[2023-05-10] MEDS: pantoprazole 40mg Tablet.DR PO SCH (08:00)
--- NOTE | 2023-05-10 08:03 | NUR ---
PAGER ID: [phone] MESSAGE: [id number], Kris Thompson. Pts Hgb 6.7, hct 21.7, INR 4.5, PT 43.9. Stacey [facility] [id number]
--- NOTE | 2023-05-10 08:14 | NUR ---
DR. VELASQUEZ CALLED ME AND WAS UPSET THAT HIS ORDERS REGARDING NORMAL SALINE INFUSION@125 WERE CHANGED VERBALLY TO THE RN ON NOC SHIFT WITHOUT ANYONE CONSULTING HIM. NO I/O'S DOCUMENTED PER NURSING RESPONSIBILITY.
[2023-05-10 08:49] LABS: PRO BRAIN NATRIURETIC PEPTIDE 14615 PG/ML (0-450)
--- NOTE | 2023-05-10 08:56 | NUR ---
#20 JELCO INSERTED JUST BELOW RIGHT AC SPACE. SMALL HEMATOMA PRESENT, FLUSHES AND DRAWS EASILY WITHOUT FURTHER HEMATOMA OR SWELLING. ONE STICK. UNABLE TO DO NIH DUE TO PATENT DROWSINESS AND INABLILITY TO FOCUS.
[2023-05-10] MEDS ORDERED: LidoCAINE 2% Topical Jelly 11mL syringe TOP ONE (10:05)
[2023-05-10] MEDS ORDERED: amiodarone/D5 360MG/200ML BAG 200 ML IV SCH (12:00)
[2023-05-10] MEDS ORDERED: amiodarone 150mg/dext, iso-os 100 ML IV ONE (12:00)
[2023-05-10] MEDS ORDERED: cefepime 2g/NS 100ml ADVANTAGE 100 ML IV SCH (12:15)
[2023-05-10] MEDS ORDERED: vancomycin 1,750 MG in NS 350ml IV soln IV ONE (12:45)
[2023-05-10] MEDS: morphine 2 MG/ML inj. syringe IV PRN (13:21)
[2023-05-10] MEDS ORDERED: LORazepam 2 mg/ml vial IV PRN (13:45)
[2023-05-10] MEDS ORDERED: methylPREDNISolone sod succ 125mg/2ml vial IV ONE (14:00)
[2023-05-10] MEDS ORDERED: diphenhydrAMINE 50 mg/ml inj IV ONE (14:00)
--- NOTE | 2023-05-10 14:45 | NUR ---
PAGER ID: [phone] MESSAGE: MIGUELINA ON PCU, KENISHA JUST TOLD ME [phone] JUST PASSED
--- NOTE | 2023-05-10 18:34 | NUR ---
We were trying to work on transferring the patient to [place]. The patient was on 15L HF and 70% fiO2. The transport team said they couldn't transfer unless she was less than 60% fio2. We decided to put the patient on bipap for a while so she didn't tire out. I also needed to give her blood as her hgb was 6.7 and hct 21.3. The doctors ordered FFP and PRBC. I started the FFP first and she tolerated it well. All vitals were stable. The patient started to desat at the very end of the transfusion. We put her back on the bipap. I started the PRBC and she started to sound very wet in her lungs. And I thought she might be having a transfusion reaction so i stopped the blood and disconnected it. I let my charge know and Dr. Pruitt. The patient began coughing up blood and blood was going up her IV and her urine was somewhat pink. The patient was struggling to breath and was very restless. I gave morphine and ativan, to which they didn't help much. I also gave solumedrol and benadryl. The patient was trying to rip off the bipap, we were suctioning the blood. We called the family and the doctors were trying to talk to the family about DNR/ comfort care. The family arrived just before the patient passed, agreed to do DNR and once I removed the bipap the patient passed in minutes.
[2023-05-11] MEDS ORDERED: gabapentin 100mg capsule PO SCH (08:00)
[2023-05-11] MEDS ORDERED: vancomycin/NS 1 GM ADD-VANTAGE 250 ML IV PRN (08:00)
[2023-05-11] MEDS ORDERED: allopurinol 100mg tablet PO SCH (08:30)
== END 2023-05-10 17:40 | DRG 64 ==
LOC: ER 11:21 → ED HOLD 14:01 → EDBEDREQ 17:01 → ORTHO 4S 21:40 → PCU 3S 05-08 07:30
PROVIDERS: ADMIT Internal Medicine; ATTEND Internal Medicine
PROC: 30233N1 Transfusion of Nonautologous Red Blood Cells into Peripheral Vein, Percutaneous Approach (ICD-10-PCS; 2023-05-03)
PROC: CB121ZZ Planar Nuclear Medicine Imaging of Lungs and Bronchi using Technetium 99m (Tc-99m) (ICD-10-PCS; 2023-05-03)
PROC: 5A0935A Assistance with Respiratory Ventilation, Less than 24 Consecutive Hours, High Flow/Velocity Cannula (ICD-10-PCS; principal; 2023-05-10)
PROC: 30233K1 Transfusion of Nonautologous Frozen Plasma into Peripheral Vein, Percutaneous Approach (ICD-10-PCS; 2023-05-10)
DX: I63.89 Other cerebral infarction (principal); J18.9 Pneumonia, unspecified organism; J80 Acute respiratory distress syndrome; N17.0 Acute kidney failure with tubular necrosis; C92.00 Acute myeloblastic leukemia, not having achieved remission; G81.91 Hemiplegia, unspecified affecting right dominant side; N39.0 Urinary tract infection, site not specified; E87.1 Hypo-osmolality and hyponatremia; Z66 Do not resuscitate; Z51.5 Encounter for palliative care; I25.10 Atherosclerotic heart disease of native coronary artery without angina pectoris; D69.6 Thrombocytopenia, unspecified; E03.9 Hypothyroidism, unspecified; E78.5 Hyperlipidemia, unspecified; E66.01 Morbid (severe) obesity due to excess calories; F32.A Depression, unspecified; F41.9 Anxiety disorder, unspecified; E79.0 Hyperuricemia without signs of inflammatory arthritis and tophaceous disease; R29.701 NIHSS score 1; I95.9 Hypotension, unspecified; M79.601 Pain in right arm; Z60.2 Problems related to living alone; I12.9 Hypertensive chronic kidney disease with stage 1 through stage 4 chronic kidney disease, or unspecified chronic kidney disease; E11.22 Type 2 diabetes mellitus with diabetic chronic kidney disease; N18.9 Chronic kidney disease, unspecified; R00.0 Tachycardia, unspecified; R53.81 Other malaise; R63.0 Anorexia; I48.91 Unspecified atrial fibrillation; J45.909 Unspecified asthma, uncomplicated; Z20.822 Contact with and (suspected) exposure to COVID-19; Z79.01 Long term (current) use of anticoagulants; Z90.710 Acquired absence of both cervix and uterus; Z91.041 Radiographic dye allergy status; Z95.1 Presence of aortocoronary bypass graft; Z68.39 Body mass index [BMI] 39.0-39.9, adult; Z88.8 Allergy status to other drugs, medicaments and biological substances; Z79.899 Other long term (current) drug therapy; Z79.82 Long term (current) use of aspirin; Z87.891 Personal history of nicotine dependence; Z90.49 Acquired absence of other specified parts of digestive tract
CPT/HCPCS: 36415; 36430; 70450; 70486; 70551; 71045; 71250; 78582; 80053; 80061; 81001; 82607; 82728; 82948; 83540; 83550; 83605; 83735; 83880; 84100; 84145; 84443; 84550; 85007; 85025; 85384; 85610; 85730; 86078; 86592; 86713; 86885; 86900; 86901; 86920; 87040; 87081; 87305; 87811; 93005; 93306; 93880; 94640; 94660; 94760; 94799; 97110; 97116; 97161; 97530; 99285; A4314; A4615; A4620; A6222; A6223; A6449; A9539; A9540; G0378; J0282; J0360; J0696; J1200; J1644; J1650; J1940; J2060; J2270; J2405; J2930; J3475; J3490; J7030; J7040; J7120; P9016; P9047; P9059